=== PATIENT | male | born 1965 | race African-American/Black ===

== ENCOUNTER 2018-02-05 01:35 | Inpatient (IN) ==
[2018-02-05] MEDS ORDERED: Acetaminophen 325 MG Tablet PO PRN (04:09)
[2018-02-05 06:41] LABS: Potassium 3.6 meq/L (3.5-5.1)
[2018-02-05 06:44] LABS: Calcium 8.2 mg/dL (8.5-10.1); Carbon Dioxide 27.9 meq/L (21.0-32.0)
[2018-02-05 06:47] LABS: Baso % (Auto) 0.6 % (0.0-2.0); Eos # (Auto) 0.4 th/mm3 (0.0-0.4); Eos % (Auto) 5.7 % (0.0-4.0); Hematocrit 35.2 % (39.0-51.0); Hemoglobin 11.8 gm/dL (13.0-17.0); Lymph # (Auto) 1.8 th/mm3 (1.0-4.8); Mean Corpuscular HGB Conc 33.5 % (32.0-36.0); Mean Corpuscular Hemoglobin 26.6 pg (27.0-34.0); Mean Corpuscular Volume 79.3 fL (80.0-100.0); Mean Platelet Volume 8.6 fL (7.0-11.0); Mono # (Auto) 0.5 th/mm3 (0.0-0.9); Mono % (Auto) 8.2 % (0.0-8.0); Neut # (Auto) 3.8 th/mm3 (1.8-7.7); Neut % (Auto) 58.5 % (16.0-70.0); Platelet Count 323 th/mm3 (150-450); Red Blood Count 4.44 mil/mm3 (4.50-5.90); Red Cell Distribution Width 15.6 % (11.6-17.2); White Blood Count 6.5 th/mm3 (4.0-11.0)
[2018-02-05] MEDS ORDERED: Dextrose 50% in Water 50 ML Vial IV.PUSH PRN (08:17)
--- NOTE | 2018-02-05 08:50 | P.CONNEU ---
History of Present Illness Service: Neurology Primary Care Provider: UNKNOWN Chief Complaint: Stroke History of Present Illness: 52-year-old male transferred from outside hospital for further stroke care due to lack of neurology service at outside hospital. Patient states he was playing pool. Did not feel well went home. [place] left side getting weak went to sleep that it would resolve. It did not went to his nearest hospital for further care. No medical records available from the outside hospital or this hospital no imaging results. He states his symptoms began 8 PM yesterday. Denies any previous history of stroke or TIA. Does not take any blood thinners no antiplatelet agents. Does have a history of diabetes for which she is on insulin. Denies any clotting disorder A. fib or lupus. Denies any family history of stroke Review of Systems All other systems reviewed negative except as stated in HPI PMFSH - Tobacco History Second Hand Smoke Exposure: (HELADIO) Smoking Status: Unknown if ever smoked - Alcohol History How Often Do You Have a Drink Containing Alcohol: Unable to Obtain - Substance Use History Substance History: Unable to Obtain Medications and Allergies Active Medications: Active Medications Acetaminophen (Tylenol) 650 mg PO Q4H PRN PRN Reason: Temp > 100.4 Dextrose (D50w Vial) 50 ml IV.PUSH UNSCH PRN PRN Reason: PER HYPOGLYCEMIA PROTOCOL Glucagon (Glucagon Inj) 1 mg OTHER PRN PRN PRN Reason: for Hypoglycemia Protocol Insulin Aspart (Novolog Insulin Correctional Sugar Inj) 0 unit SQ ACHS JN; Protocol Lorazepam (Ativan Inj) 1 mg IV.PUSH ONCE ONE Stop: 02/05/18 08:14 Ondansetron HCl (Zofran Inj) 4 mg IV.PUSH Q6H PRN PRN Reason: NAUSEA OR VOMITING Sodium Chloride (Ns Flush) 2 ml IV.FLUSH BID JN Allergies Allergy/AdvReac Type Severity Reaction Status Date / Time No Known Allergies Allergy Uncoded 07/04/11 12:04 Exam Vital signs: Vital Signs 02/05/18 05:00 02/05/18 08:00 Temperature 97.7 F 97.4 F L Pulse Rate 75 64 Respiratory Rate 20 Blood Pressure 141/79 H 145/98 H Pulse Oximetry 98 99 Intake & Output 02/04/18 02/05/18 02/05/18 18:59 06:59 18:59 Intake Total 0 / 0 Balance 0 / 0 Weight 90 kg Intake: Oral 0 / 0 Other: # Voids 1 Narrative: GENERAL: in NAD, SKIN: Warm and dry. HEAD: Atraumatic. Normocephalic. EYES: Pupils equal and round. No scleral icterus. ENT: No nasal bleeding or discharge. Mucous membranes pink and moist. NECK: Trachea midline. No JVD. CARDIOVASCULAR: Regular rate and rhythm. RESPIRATORY: No accessory muscle use. GASTROINTESTINAL: Abdomen soft, non-tender, nondistended. MUSCULOSKELETAL: Right toe amputate NEUROLOGICAL: Awake and alert. No aphasia, fluent articulate, oriented x3, follows motor request, left hemiplegia strength 0 out of 5, stocking distribution neuropathy reduced pinprick right toe amputation PSYCHIATRIC: Appropriate mood and affect; insight and judgment normal. - Constitutional no acute distress - Routine HEENT Exam Head: Present: normocephalic Results - Labs CBC & Chem 7: 02/05/18 05:57 02/05/18 05:57 Labs: Laboratory Results - last 24 hr 02/05/18 02/05/18 02/05/18 05:57 05:57 07:14 CBC w Diff Auto diff final WBC 6.5 RBC 4.44 L Hgb 11.8 L Hct 35.2 L MCV 79.3 L MCH 26.6 L MCHC 33.5 RDW 15.6 Plt Count 323 MPV 8.6 Neut % (Auto) 58.5 Lymph % (Auto) 27.0 [place] % (Auto) 8.2 H Eos % (Auto) 5.7 H Baso % (Auto) 0.6 Neut # (Auto) 3.8 Lymph # (Auto) 1.8 [place] # (Auto) 0.5 Eos # (Auto) 0.4 Baso # (Auto) 0.0 WBC Differential . Differential Comment . Sodium 137 Potassium 3.6 Chloride 99 Carbon Dioxide 27.9 Anion Gap 10 BUN 15 Creatinine 1.20 Estimated GFR 76 L POC Glucose 293 H Random Glucose 339 H Calcium 8.2 L Review/Management - Diagnosis (1) Acute ischemic stroke Code(s): I63.9 - Cerebral infarction, unspecified Status: Acute Current Visit: Yes (2) Diabetic peripheral neuropathy Code(s): E11.42 - Type 2 diabetes mellitus with diabetic polyneuropathy Status : Acute Current Visit: Yes - Review/Management Plan: Appears to have a pure motor cortical spinal tract stroke affecting the right side. Possible right subcortical Risk factors include diabetes, hypertension likely small vessel stroke. Recommendations aspirin MRI, MRA brain Carotid imaging Echo Lipid, TSH, B12, HbA1c Therapy Telemetry SCDs Consider hematological evaluation if recurrent episode despite behavioral modification and diabetic and hypertension control. Consider cardiology evaluation for ARMAAN/event monitor defer to medical Behavioral modification and risk factor reduction. Weight loss, blood pressure control, blood sugar control, lipid control. Exercise Discussed with medical Will likely require inpatient rehabilitation closer to his home
--- NOTE | 2018-02-05 09:50 | US ---
EXAM DATE: 02/05/2018 12:00 AM EDT AGE/SEX: 52 years / Male INDICATIONS: Left sided weakness. CLINICAL DATA: This is the patient's initial encounter. Patient reports that signs and symptoms have been present for 1 day and indicates a pain score of 0/10. MEDICAL/SURGICAL HISTORY: . Left sided weakness. Diabetes. None. COMPARISON: No prior exams available for comparison. VELOCITY PARAMETERS: ICA/CCA Ratio: Right 0.8 , Left 1.7 ICA: Right 71 cm/sec, Left 116 cm/sec CCA: Right 91 cm/sec, Left 67 cm/sec ECA: Right 52 cm/sec, Left 62 cm/sec Vertebral: Right 47 cm/sec antegrade, Left 43 cm/sec antegrade FINDINGS: Right Carotid: Mild arteriosclerotic plaque is visualized.The waveforms are within normal limits. Left Carotid: Mild arteriosclerotic plaque is visualized. The waveforms are within normal limits. Other: None. CONCLUSION: Mild plaquing at both carotid bifurcations. Otherwise, unremarkable examination for patie nt's age. Specifically, no focal high-grade or hemodynamically significant stenosis. Electronically signed by: Patricio Deal MD 02/05/2018 9:49 AM EDT
[2018-02-05] MEDS: Heparin - SQ 10,000 UNITS/ML Vial SQ SCH ×2 (10:23→21:45)
[2018-02-05] MEDS: Aspirin 325 MG Tablet PO SCH (10:23)
[2018-02-05 10:28] LABS: Chol/HDL Ratio 5.46 Ratio; HDL Cholesterol 26.9 mg/dL (40.0-60.0)
--- NOTE | 2018-02-05 14:49 | MR ---
EXAM DATE: 02/05/2018 9:46 AM EDT AGE/SEX: 52 years / Male INDICATIONS: CVA. Left sided weakness for two days. CLINICAL DATA: This is the patient's initial encounter. Patient reports that signs and symptoms have been present for 2 days and indicates a pain score of 6/10. MEDICAL/SURGICAL HISTORY: Diabetes mellitus type II. . Knee sx. COMPARISON: HPO, MR HEAD W/O CONTRAST, 02/05/2018. . TECHNIQUE: 3D [id number] MRA was performed. Source images, multiplanar STS MIP, and 3D volum e MIP reconstructions were reviewed. FINDINGS: Anterior Circulation: Intracranial Carotid Arteries: Patent. SARAH: There is no evidence for aneurysm, vessel truncation or stenosis, and no evidence for vascular m alformation. MCA: There is no evidence for aneurysm, vessel truncation or stenosis, and no evidence for vascular m alformation. Posterior Circulation: Distal Vertebral Arteries: Distal Vertebral arteries are symetrical and patent. Basilar Artery: There is no evidence for aneurysm, vessel truncation or stenosis, and no evidence for vascular malformation. FIRE RANGE TECHNICIAN and Cerebellar Branches: There is no evidence for aneurysm, vessel truncation or stenosis, and no evidence for vascular malformation. CONCLUSION: 1. Unremarkable MRA examination of the [place]. Specifically, no evidence for large vessel occlusion. Electronically signed by: Jj Saravia MD 02/05/2018 2:48 PM EDT
--- NOTE | 2018-02-05 14:51 | P.HP ---
History of Present Illness Primary Care Physician: UNKNOWN Chief Complaint: Stroke History of Present Illness: 52-year-old male with known history of hypertension, hyperlipidemia, myocardial infarction, diabetes, peripheral neuropathy, chronic neck and back pain who presented to the hospital for evaluation of left-sided weakness. Patient states that his normal state of health until he was out playing pool last evening. He states that every time he went to go to the restroom and he was urinating he got lightheaded and dizzy. He subsequently went home early from the pool tournament. He called his uncle and told him that he was not feeling well, his uncle was going to come over and check on him. When his uncle got to his house he was sleeping and when he woke up at approximately 8:00 he had left- sided numbness in both upper and lower extremities. He indicated that there was some blurred vision, difficulty in speaking. The patient was taken to the ER by his uncle in approximately 30 minutes. Patient had workup done at [facility] and was found to have a negative CT scan. Apparently there was no neurologist stone driller helper per ER documentation. The patient was transferred to [facility] for continued care and management. Upon evaluating patient today he does have significant stroke symptoms with left- sided weakness, paralysis. Patient indicates that he has had a TIA in the past. - Diagnosis (1) Acute ischemic stroke Review of Systems All other systems reviewed negative except as stated in HPI Neurologic: Reports abnormal speech, Reports abnormal walking, Reports dizziness , Reports localized weakness, Reports tingling/numbness/burning sensations, Reports weakness PMFSH - Medical History Medical History: Medical History (Last Updated 02/05/18 @ 15:00 by BETSY Hernandes) Chronic back pain Coronary artery disease Diabetes mellitus Diabetic neuropathy Gastroesophageal reflux History of transient ischemic attack (TIA) Hyperlipidemia Hypertension Peripheral neuropathy - Surgical History Surgical History: Surgical History (Last Updated 02/05/18 @ 14:59 by BETSY Hernandes) History of cardiac catheterization History of left knee surgery Status post right foot surgery - Family History Family History: Family History (Last Updated 02/05/18 @ 15:00 by BETSY Hernandes) Father History of myocardial infarction - Tobacco History Second Hand Smoke Exposure: (HELADIO) Smoking Status: Unknown if ever smoked - Alcohol History How Often Do You Have a Drink Containing Alcohol: Unable to Obtain - Substance Use History Substance History: Unable to Obtain Medications and Allergies Active Medications: Active Medications Acetaminophen (Tylenol) 650 mg PO Q4H PRN PRN Reason: Temp > 100.4 Aspirin (Aspirin) 325 mg PO DAILY [facility] Last Admin: 02/05/18 10:23 Dose: 325 mg Dextrose (D50w Vial) 50 ml IV.PUSH UNSCH PRN PRN Reason: PER HYPOGLYCEMIA PROTOCOL Glucagon (Glucagon Inj) 1 mg OTHER PRN PRN PRN Reason: for Hypoglycemia Protocol Heparin Sodium (Porcine) (Heparin Inj) 5,000 units SQ Q12HR [facility] Last Admin: 02/05/18 10:23 Dose: 5,000 units Insulin Aspart (Novolog Insulin Correctional Sugar Inj) 0 unit SQ ACHS [facility]; Protocol Ondansetron HCl (Zofran Inj) 4 mg IV.PUSH Q6H PRN PRN Reason: NAUSEA OR VOMITING Sodium Chloride (Ns Flush) 2 ml IV.FLUSH BID [facility] Last Admin: 02/05/18 10:23 Dose: 2 ml Allergies Allergy/AdvReac Type Severity Reaction Status Date / Time No Known Allergies Allergy Uncoded 07/04/11 12:04 Home Medications Medication Instructions Recorded Confirmed Type Novolin 70/30 U-100 Insulin 40 unit SUBCUT AC BREAKFAST 02/05/18 02/05/18 History amlodipine [Norvasc] 10 mg PO DAILY 02/05/18 02/05/18 History atorvastatin [Lipitor] 20 mg PO DAILY 02/05/18 02/05/18 History cetirizine [Zyrtec] 10 mg PO DAILY 02/05/18 02/05/18 History duloxetine [Cymbalta] 60 mg PO DAILY 02/05/18 02/05/18 History gabapentin 300 mg PO BID 02/05/18 02/05/18 History insulin NPH and regular human 20 unit SUBCUT HS 02/05/18 02/05/18 History [Novolin 70/30 U-100 Insulin] oxycodone-acetaminophen [Percocet] 1 tab PO Q6H PRN 02/05/18 02/05/18 History sitagliptin [Januvia] 100 mg PO DAILY 02/05/18 02/05/18 History triamterene-hydrochlorothiazid 1 cap PO DAILY 02/05/18 02/05/18 History [Dyazide] Exam Vital signs: Vital Signs 02/05/18 05:00 02/05/18 08:00 02/05/18 12:00 Temperature 97.7 F 97.4 F L 98.2 F Pulse Rate 75 64 62 Respiratory Rate 20 18 Blood Pressure 141/79 H 145/98 H 119/76 Pulse Oximetry 98 99 95 Intake & Output 02/04/18 02/05/18 02/05/18 18:59 06:59 18:59 Intake Total 0 / 0 Balance 0 / 0 Weight 90 kg Intake: Oral 0 / 0 Other: # Voids 1 Narrative: GENERAL: Well-developed, well-nourished, in no acute distress. alert and orientated HEENT: Head is normocephalic without any lesions or masses noted. Facial features are symmetric. Eyes: Pupils equal round reactive to light. Extraocular muscles are intact. Conjunctivae were clear. Oropharyngeal: Pharynx without any erythema edema. Tongue is midline without deviation. Buccal mucosa is moist without any masses or lesions NECK: Supple without any masses. Trachea midline no deviation. No JVD, no bruits are appreciated CARDIAC: Regular rhythm, regular rate. S1/S2 are heard. No murmurs gallops or rubs. LUNGS: Clear to auscultation bilaterally. No wheeze, rhonchi or rales. No use of accessory muscles on inspiration or expiration. ABDOMEN: Soft, nontender. Nondistended. Bowel sounds heard in all 4 quadrants. No organomegaly or masses. Negative rebound, negative guarding EXTREMITIES: No edema, pulses are equal bilaterally. No cyanosis or clubbing NEUROLOGY: Mood and affect appear appropriate. Cranial nerves II through XII grossly intact. Muscle strength 0/5 in left upper and lower extremity. Deep tendon reflexes are 2+ in upper and lower extremities bilaterally. RIGHT LOWER EXTREMITIES: Patient does have rather foul smelling bandage on his right lower extremity Results - Labs CBC & Chem 7: 02/05/18 05:57 02/05/18 05:57 Labs: Laboratory Results - last 24 hr 02/05/18 02/05/18 02/05/18 05:57 05:57 07:14 CBC w Diff Auto diff final WBC 6.5 RBC 4.44 L Hgb 11.8 L Hct 35.2 L MCV 79.3 L MCH 26.6 L MCHC 33.5 RDW 15.6 Plt Count 323 MPV 8.6 Neut % (Auto) 58.5 Lymph % (Auto) 27.0 [place] % (Auto) 8.2 H Eos % (Auto) 5.7 H Baso % (Auto) 0.6 Neut # (Auto) 3.8 Lymph # (Auto) 1.8 [place] # (Auto) 0.5 Eos # (Auto) 0.4 Baso # (Auto) 0.0 WBC Differential . Differential Comment . Sodium 137 Potassium 3.6 Chloride 99 Carbon Dioxide 27.9 Anion Gap 10 BUN 15 Creatinine 1.20 Estimated GFR 76 L POC Glucose 293 H Random Glucose 339 H Calcium 8.2 L Triglycerides 135 Cholesterol 147 LDL Cholesterol, Calc 93 HDL Cholesterol 26.9 L Cholesterol/HDL Ratio 5.46 02/05/18 02/05/18 11:19 13:36 CBC w Diff WBC RBC Hgb Hct MCV MCH MCHC RDW Plt Count MPV Neut % (Auto) Lymph % (Auto) [place] % (Auto) Eos % (Auto) Baso % (Auto) Neut # (Auto) Lymph # (Auto) [place] # (Auto) Eos # (Auto) Baso # (Auto) WBC Differential Differential Comment Sodium Potassium Chloride Carbon Dioxide Anion Gap BUN Creatinine Estimated GFR POC Glucose 222 H 215 H Random Glucose Calcium Triglycerides Cholesterol LDL Cholesterol, Calc HDL Cholesterol Cholesterol/HDL Ratio - Imaging Impressions Carotid Doppler Study 02/05/18 00:00 CONCLUSION: Mild plaquing at both carotid bifurcations. Otherwise, unremarkable examination for patient's age. Specifically, no focal high-grade or hemodynamically significant stenosis. Head MRA 02/05/18 04:13 CONCLUSION: 1. Unremarkable MRA examination of the [place]. Specifically, no evidence for large vessel occlusion. Caprini VTE Risk Assessment Caprini VTE Risk Assessment: Moderate/High Risk (score >= 2) Caprini Risk Assessment Model: Point Value = 1 Point Value = 2 Point Value = 3 Point Value = 5 Age 41-60 Minor surgery BMI > 25 kg/m2 Swollen legs Varicose veins or History of unexplained or recurrent spontaneous Oral contraceptives or hormone replacement Sepsis (< 1 month) Serious lung disease, including pneumonia (< 1 month) Abnormal pulmonary function Acute myocardial infarction Congestive heart failure (< 1 month) History of inflammatory bowel disease Medical patient at bed rest Age 61-74 Arthroscopic surgery Major open surgery (> 45 min) Laparoscopic surgery (> 45 min) Malignancy Confined to bed (> 72 hours) Immobilizing plaster cast Central venous access Age >= 75 History of VTE Family history of VTE Factor V Leiden Prothrombin [id number] Lupus anticoagulant Anticardiolipin antibodies Elevated serum homocysteine Heparin-induced thrombocytopenia Other congenital or acquired thrombophilia Stroke (< 1 month) Elective arthroplasty Hip, pelvis, or leg fracture Acute spinal cord injury (< 1 month) Prophylaxis Regimen: Total Risk Factor Score Risk Level Prophylaxis Regimen 0-1 Low Early ambulation 2 Moderate Order ONE of the following: *Sequential Compression Device (SCD) *Heparin 5000 units SQ BID 3-4 Higher Order ONE of the following medications: *Heparin 5000 units SQ TID *Enoxaparin/Lovenox 40 mg SQ daily (WT < 150 kg, CrCl > 30 mL/min) *Enoxaparin/Lovenox 30 mg SQ daily (WT < 150 kg, CrCl > 10-29 mL/min) *Enoxaparin/Lovenox 30 mg SQ BID (WT < 150 kg, CrCl > 30 mL/min) AND/OR *Sequential Compression Device (SCD) 5 or more Highest Order ONE of the following medications: *Heparin 5000 units SQ TID (Preferred with Epidurals) *Enoxaparin/Lovenox 40 mg SQ daily (WT < 150 kg, CrCl > 30 mL/min) *Enoxaparin/Lovenox 30 mg SQ daily (WT < 150 kg, CrCl > 10-29 mL/min) *Enoxaparin/Lovenox 30 mg SQ BID (WT < 150 kg, CrCl > 30 mL/min) AND *Sequential Compression Device (SCD) Assessment and Plan - Assessment (1) Acute ischemic stroke Code(s): I63.9 - Cerebral infarction, unspecified Status: Acute - Plan Acute left-sided weakness, rule out CVA -CT scan of the head at [facility] did not indicate any acute abnormality -MRI of the brain did not indicate any acute infarction or hemorrhage. Does show a 2.6 x 1.5 cm left middle cranial fossa arachnoid cyst. Mild periventricular ischemic white matter demyelinization were -MRA of the brain showed unremarkable MRA -Carotid ultrasound shows mild plaquing in both carotid bifurcations, otherwise unremarkable examination -Awaiting echocardiogram, -neurology evaluated the patient and have multiple recommendations to include possible hematological evaluation if recurrent episode, possible cardiology evaluation for ARMAAN/event monitor, patient will require inpatient rehab closer to his home -Awaiting TSH, B12, folate, hemoglobin A1c Diabetes -Diabetic diet -Accu-Cheks with sliding scale insulin Hypertension, hyperlipidemia, coronary disease, history of myocardial infarction -Permissive hypertension at this time -Continue statin Diabetic foot wound, chronic -Consult wound care nurse for evaluation DVT prevention -Sequential compression devices
--- NOTE | 2018-02-05 14:54 | MR ---
EXAM DATE: 02/05/2018 9:46 AM EDT AGE/SEX: 52 years / Male INDICATIONS: CVA. Left sided weakess for two days. CLINICAL DATA: This is the patient's initial encounter. Patient reports that signs and symptoms have been present for 2 days and indicates a pain score of 3/10. MEDICAL/SURGICAL HISTORY: Diabetes mellitus type II. . Knee sx. COMPARISON: HPO, MRA HEAD W/O CONTRAST, 02/05/2018. . TECHNIQUE: Multiplanar, multisequence examination of the brain was performed without contrast. FINDINGS: Cerebrum: Mild diffuse cerebral atrophy. The ventricles are normal for degree of atrophy. CSF densi ty extra-axial lesion in the left anterior temporal lobe convexities measuring 2.6 x 1.5 cm. No evide nce of midline shift, mass lesion, hemorrhage or acute infarction. No extraaxial fluid collections a re seen. The pituitary gland and suprasellar cistern are normal in configuration. White Matter: Minimal periventricular and focal deep white matter T2 prolongation. Posterior Fossa: The cerebellum and brainstem are intact. The 4th ventricle is midline. The cerebel lopontine angle is unremarkable. The cerebellar tonsils are normal in position. Diffusion Imaging: No focal areas of restricted diffusion are seen. No evidence of acute infarction . Extracranial: The visualized portions of the orbits and paranasal sinuses are unremarkable. CONCLUSION: 1. 2.6 x 1.5 cm left middle cranial fossa arachnoid cyst. 2. Mild periventricular ischemic white matter demyelination. 3. No acute abnormality. Specifically, no evidence for acute infarction or hemorrhage. Electronically signed by: Jj Saravia MD 02/05/2018 2:53 PM EDT
[2018-02-05] MEDS: Duloxetine 60 MG DR Capsule PO SCH (16:23)
[2018-02-05] MEDS: Gabapentin 300 MG Capsule PO SCH ×2 (16:23→21:45)
[2018-02-05] MEDS: Insulin NovoLOG Aspart Correctional Sugar Inj SQ SCH ×3 (16:27→21:44)
[2018-02-05 18:15] LABS: Thyroid Stimulating Hormone 0.719 uIU/mL (0.358-3.740)
[2018-02-05 18:51] LABS: Hemoglobin A1c 12.1 % (4.3-6.0)
[2018-02-05 20:32] LABS: Folate 13.7 ng/mL (3.1-17.5)
[2018-02-06] MEDS: Duloxetine 60 MG DR Capsule PO SCH (07:59)
[2018-02-06] MEDS: Aspirin 325 MG Tablet PO SCH (07:59)
[2018-02-06] MEDS: Heparin - SQ 10,000 UNITS/ML Vial SQ SCH ×2 (07:59→22:34)
[2018-02-06] MEDS: Gabapentin 300 MG Capsule PO SCH ×2 (07:59→22:34)
[2018-02-06] MEDS: Insulin NovoLOG Aspart Correctional Sugar Inj SQ SCH ×4 (08:00→22:34)
--- NOTE | 2018-02-06 15:13 | P.PN ---
Subjective Interval history: 52-year-old male who is seen and examined today for follow-up on left-sided weakness. Patient states that he is improving. He is able to move his left upper extremity. Said he started developing some pain in his left lower extremity. Patient denies any worsening of symptoms. Blood pressure mildly elevated, patient remains afebrile. Physical Exam Vital signs: Vital Signs 02/05/18 16:00 02/05/18 20:00 02/06/18 00:00 Temperature 97.3 F L 98.7 F 97.4 F L Pulse Rate 67 80 72 Respiratory Rate 18 18 18 Blood Pressure 141/80 H 139/92 H 126/86 Pulse Oximetry 97 96 97 02/06/18 04:00 02/06/18 08:00 02/06/18 11:03 Temperature 97.4 F L 96.3 F L Pulse Rate 68 67 Respiratory Rate 18 20 20 Blood Pressure 98/60 L 138/92 H Pulse Oximetry 96 96 02/06/18 12:00 Temperature 98.2 F Pulse Rate 79 Respiratory Rate 20 Blood Pressure 163/97 H Pulse Oximetry 93 L Intake & Output 02/05/18 02/06/18 02/06/18 18:59 06:59 18:59 Intake Total 500 / 500 480 / 480 Output Total 200 / 200 600 / 600 Balance 300 / 300 -120 / -120 Weight 90 kg Intake: Oral 500 / 500 480 / 480 Output: Urine 200 / 200 600 / 600 Other: # Voids 1 Date of Last Bowel Movement 02/05/18 02/05/18 02/05/18 # Bowel Movements 1 1 Narrative: GENERAL: Well-developed, well-nourished, in no acute distress. alert and orientated HEENT: Head is normocephalic without any lesions or masses noted. Facial features are symmetric. Eyes: Extraocular muscles are intact. Conjunctivae were clear. NECK: Supple without any masses. Trachea midline no deviation. No JVD, CARDIAC: Regular rhythm, regular rate. S1/S2 are heard. No murmurs gallops or rubs. LUNGS: Clear to auscultation bilaterally. No wheeze, rhonchi or rales. No use of accessory muscles on inspiration or expiration. ABDOMEN: Soft, nontender. Nondistended. Bowel sounds heard in all 4 quadrants. No organomegaly or masses. Negative rebound, negative guarding EXTREMITIES: No edema, pulses are equal bilaterally. No cyanosis or clubbing NEUROLOGY: Mood and affect appear appropriate. Cranial nerves II through XII grossly intact. Moving all extremities, speech is clear. Neurological exam with muscle strength and varies. 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 But then at times he is a 2/5. Very difficult to see if he has any persistent neurological deficits because appears to change on a moment's basis. Results - Labs CBC & Chem 7: 02/05/18 05:57 02/05/18 05:57 Laboratory Results - last 24 hr 02/05/18 02/05/18 02/05/18 05:57 16:22 17:30 ESR 1 POC Glucose 265 H Hemoglobin A1c 12.1 H Vitamin B12 Folate TSH 02/05/18 02/05/18 02/06/18 17:30 20:28 07:27 ESR POC Glucose 200 H 207 H Hemoglobin A1c Vitamin B12 417 Folate 13.7 TSH 0.719 02/06/18 11:23 ESR POC Glucose 188 H Hemoglobin A1c Vitamin B12 Folate TSH Assessment and Plan - Assessment (1) Acute ischemic stroke Code(s): I63.9 - Cerebral infarction, unspecified Status: Acute - Plan Acute left-sided weakness, rule out CVA -CT scan [facility] the head at [facility] did not indicate any acute abnormality -MRI of the brain did not indicate any acute infarction or hemorrhage. Does show a 2.6 x 1.5 cm left middle cranial fossa arachnoid cyst. Mild periventricular ischemic white matter demyelinization were -MRA of the brain showed unremarkable MRA -Carotid ultrasound shows mild plaquing in both carotid bifurcations, otherwise unremarkable examination -Awaiting MRI of the cervical spine -Awaiting echocardiogram, -neurology evaluated the patient and have multiple recommendations to include possible hematological evaluation if recurrent episode, possible cardiology evaluation for ARMAAN/event monitor, patient will require inpatient rehab closer to his home -Additional labs to include TSH, B12, folate were unremarkable Diabetes -Diabetic diet -Accu-Cheks with sliding scale insulin -Hemoglobin A1c 12.1 Hypertension, hyperlipidemia, coronary disease, history of myocardial infarction -Start controlling blood pressure -Resume home medications -LDL 93 -Continue statin Diabetic foot wound, chronic -Awaiting wound care nurse for evaluation DVT prevention -Sequential compression devices Discharge Planning: Discharge planning 24-48 hours depending on completing workup, physical therapy recommendations, case management for discharge planning to home with home health care versus rehab
[2018-02-06] MEDS: amLODIPine 10 MG Tablet PO SCH (17:07)
--- NOTE | 2018-02-06 17:10 | MR ---
EXAM DATE: 02/06/2018 3:37 PM EDT AGE/SEX: 52 years / Male INDICATIONS: . Left sided weakness. Spinal stroke. CLINICAL DATA: This is the patient's subsequent encounter. Patient reports that signs and symptoms h ave been present for 2 days and indicates a pain score of 0/10. MEDICAL/SURGICAL HISTORY: Diabetes. . Left knee surgery. COMPARISON: No prior exams available for comparison. TECHNIQUE: Multiplanar, multisequence MRI examination of the cervical spine was performed without co ntrast. FINDINGS: This study is degraded by motion artifact greatest on the axial images. Vertebrae: Normal vertebral body height. There is discogenic edema in the endplates at the C5-6 leve l.. Alignment: Normal. Discs: There is mild desiccation. There is mild disc space narrowing and hypertrophic changes at C5-6 level. There are anterior extradural defects noted on the sagittal images 5 and C5-6 levels. Cord: Normal configuration and signal. Post Fossa: The cerebellar tonsils are normal in position. C2-C3: The thecal sac has a normal configuration. There is no evidence of disc herniation or spinal canal stenosis. The neural foramina are patent bilaterally. C3-C4: The thecal sac has a normal configuration. There is no evidence of disc herniation or spinal canal stenosis. The neural foramina are patent bilaterally C4-C5: There is a moderate-sized broad-based protrusion which meets the anterior cord with apparent mild flattening and no abnormal signal. CSF is located posterior to the cord. There is mild to modera te narrowing the neural foramina bilaterally C5-C6: There is a moderate disc bulge which meets the anterior cord with questionable mild flattenin g and no abnormal signal. The CSF space surrounding the cord is obliterated and the residual AP diame ter canal measures 7 to 8 mm. There is moderate narrowing of the neural foramina bilaterally. C6-C7: The thecal sac has a normal configuration. There is no evidence of disc herniation or spinal canal stenosis. The neural foramina are patent bilaterally. C7-T1: No epidural impressions seen. CONCLUSION: 1. Moderate size broad-based protrusion at the C4-5 level which meets the anterior cord with apparen t mild flattening in no abnormal signal. 2. Moderate disc bulge at C5-6 which meets the anterior cord with questionable mild flattening. The CSF space surrounding the cord is obliterated and the residual AP diameter canal measures 7 to 8 mm c onsistent with borderline central canal stenosis. 3. Narrowing of the neural foramina bilaterally at the C4-5 and C5-6 levels. 4. Optimal exam motion artifact. Electronically signed by: Niko Gordon MD 02/06/2018 5:08 PM EDT
--- NOTE | 2018-02-06 18:21 | ECHRPT ---
Indication: CVA / TIA CONCLUSIONS Technically difficult study. The left ventricular systolic function is normal with an estimated ejection fraction in the range of 55-60%. This study was not technically sufficient to allow for evaluation of left ventricular diastolic func tion. Trace mitral valve regurgitation. There is trace tricuspid valve regurgitation. BP: / HR: Rhythm: MEASUREMENTS (Male / Female) Normal Values Technical Quality:Technically difficult study 2D ECHO LV Diastolic Diameter PLAX 4.6 cm 4.2 - 5.9 / 3.9 - 5.3 cm LV Systolic Diameter PLAX 3.5 cm IVS Diastolic Thickness 0.9 cm 0.6 - 1.0 / 0.6 - 0.9 cm LVPW Diastolic Thickness 0.9 cm 0.6 - 1.0 / 0.6 - 0.9 cm LV Relative Wall Thickness 0.4 RV Internal Dim ED PLAX 3.6 cm LVOT Diameter 2.1 cm Aortic Root Diameter 2.6 cm LA Systolic Diameter LX 3.3 cm 3.0 - 4.0 / 2.7 - 3.8 cm M-MODE AV Cusp Separation MM 2.0 cm DOPPLER AV Peak Velocity 86.9 cm/s AV Peak Gradient 3.0 mmHg LVOT Peak Velocity 68.6 cm/s LVOT Peak Gradient 1.9 mmHg AV Area Cont Eq pk 2.7 cm Mitral E Point Velocity 66.6 cm/s Mitral A Point Velocity 52.8 cm/s Mitral E to A Ratio 1.3 LV E' Lateral Velocity 6.8 cm/s Mitral E to LV E' Lateral Ratio 9.8 LV E' Septal Velocity 5.6 cm/s Mitral E to LV E' Septal Ratio 12.0 TR Peak Velocity 189.0 cm/s TR Peak Gradient 14.3 mmHg Right Atrial Pressure 10.0 mmHg Pulmonary Artery Systolic Pressu 24.3 mmHg Right Ventricular Systolic Press 24.3 mmHg PV Peak Velocity 89.6 cm/s PV Peak Gradient 3.2 mmHg FINDINGS LEFT VENTRICLE Normal left ventricular size. Wall thickness is normal. The left ventricular systolic function is normal with an estimated ejection fraction in the range of 55-60%. No regional wall motion abnormalities are present. This study was not technically sufficient to allow for evaluation of left ventricular diastolic func tion. RIGHT VENTRICLE Normal right ventricular size and systolic function. LEFT ATRIUM The left atrial size is normal. RIGHT ATRIUM The right atrial size is normal. ATRIAL SEPTUM Normal atrial septal thickness without atrial level shunting by limited color doppler interrogation. AORTA The aortic root and proximal ascending aorta are normal in size on limited imaging. MITRAL VALVE Structurally normal mitral valve. No mitral valve stenosis. Trace mitral valve regurgitation. AORTIC VALVE Trileaflet aortic valve. No aortic valve regurgitation. No aortic valve stenosis. TRICUSPID VALVE Structurally normal tricuspid valve. There is trace tricuspid valve regurgitation. The estimated pulmonary arterial pressure is 24 mmHg. PULMONARY VALVE No pulmonary valve regurgitation or stenosis. VESSELS The inferior vena cava is normal in size. PERICARDIUM No pericardial effusion. Felipe Rico DO (Electronically Signed) Final Date:06 February 2018 18:20
--- NOTE | 2018-02-06 20:07 | P.PNWCN ---
Wound Care Nurse Consult Description: Received consult for wound management of R foot from Giovanni MEYER Communicated with: CELIA Carrero 3rd floor [facility] and Chayito DIEGO Recommendation: 1.Please consult podiatry for macerated callus and possible debridement. 2.Please order wound culture for R foot wound. 3. Apply Maxorb extra AG to wound on R lateral foot and barrel bung remover and dumper macerated callus on the plantar surface of R foot 4. Cover with ABD pad, secured with rolled gauze and elastic wrap. 5. May further secure with stockinette 6. Change every other day or PRN if saturated or dislodged or until podiatry sees. Wound/Pressure Injury - Patient Status Premedicated for Pain Prior to Dressing Change: No - Wound Right foot Wound Type: Traumatic Wound Is This a Chronic Wound: Yes Requested from Provider a Wound Care Consult: Yes (Wound care saw patient today) Length (cm): 2 (~2cm) Width (cm): 2 (~2cm) Depth (cm): 0.1 (~0.1cm ) Wound Bed Appearance: [place] Wound Bed Appearance: open wound presents with 100% pink tissue. There is a closed macerated callus that extends from the periwound of the lateral R foot to the plantar surface of the R foot. Surrounding Tissue Appearance: Weeping (macerated callus) Surrounding Tissue Temperature: Cool Drainage Description: Serosanguinous Drainage Amount: Minimal Drainage Odor: Slight Odor Dressing Status: Changed Cleansing Solution: Wound cleanser Wound Packing Type: Alginate (Maxorb extra AG) Primary Dressing: ABD pad Cover Dressing: Gauze Roll/Wrap (elastic wrap) Wound Dressing Change Date: 02/06/18 Wound Margin Description: open and jagged - Additional Information Patient seen for wound to R foot per wound management consult from Johnathon MEYER. Patient is laying in bed upon functional tester typewriters's arrival. Removed Dressing consisting of rolled gauze, elastic wrap, ABD pad and telfa to reveal open wound to R lateral foot. Periwound presents with peeling skin and macerated callus that extends from wound edge to R plantar surface of the foot. Full wound description with measurements are noted above. Wound was cleansed with normal saline and pat dry.Wound culture was obtained due presence of slight foul odor from wound noted after cleansing. Applied Maxorb extra AG to wound bed and macerated callus. Then covered wound with ABd pad, secured with rolled gauze and elastic wrap. Per patient he goes to outpatient [facility] for R foot wound. Also sees a Doctor from [facility]. Does not remember which Doctor he sees.
[2018-02-07] MEDS: Duloxetine 60 MG DR Capsule PO SCH (08:28)
[2018-02-07] MEDS: amLODIPine 10 MG Tablet PO SCH (08:29)
[2018-02-07] MEDS: Aspirin 325 MG Tablet PO SCH (08:29)
[2018-02-07] MEDS: Gabapentin 300 MG Capsule PO SCH ×2 (08:30→22:28)
[2018-02-07] MEDS: Heparin - SQ 10,000 UNITS/ML Vial SQ SCH ×2 (08:31→22:27)
[2018-02-07] MEDS: Insulin NovoLOG Aspart Correctional Sugar Inj SQ SCH ×4 (08:31→21:09)
--- NOTE | 2018-02-07 11:43 | P.PN ---
Subjective Interval history: 52-year-old male who is seen and examined today for follow-up on left-sided weakness. Patient still with left-sided weakness. Patient was asked to lift his arm, however he said he can only move his finger. When asked to move his foot patient was unable to do so. However patient has been walking with physical therapy. However yesterday he was moving his arm. Patient is very inconsistent with his neurological symptoms. Vital signs are stable. Patient remains afebrile. Physical Exam Vital signs: Vital Signs 02/06/18 12:00 02/06/18 16:00 02/06/18 20:04 Temperature 98.2 F 98.7 F Pulse Rate 79 82 72 Respiratory Rate 20 20 Blood Pressure 163/97 H 161/98 H Pulse Oximetry 93 L 97 02/06/18 22:00 02/07/18 00:00 02/07/18 04:00 Temperature 96.8 F L 97.0 F L 97 F L Pulse Rate 72 79 63 Respiratory Rate 18 20 20 Blood Pressure 124/82 101/67 119/84 Pulse Oximetry 96 96 97 02/07/18 06:16 02/07/18 08:00 Temperature 97.3 F L Pulse Rate 62 Respiratory Rate 18 20 Blood Pressure 121/79 Pulse Oximetry 96 Intake & Output 02/06/18 02/07/18 02/07/18 18:59 06:59 18:59 Intake Total 1480 / 1480 720 / 720 Output Total 700 / 700 900 / 900 Balance 780 / 780 -180 / -180 Weight 89.6 kg Intake: Oral 1480 / 1480 720 / 720 Output: Urine 700 / 700 900 / 900 Other: # Voids 9 Date of Last Bowel Movement 02/05/18 02/05/18 02/05/18 # Bowel Movements 1 Narrative: GENERAL: Well-developed, well-nourished, in no acute distress. alert and orientated HEENT: Head is normocephalic without any lesions or masses noted. Facial features are symmetric. Eyes: Extraocular muscles are intact. Conjunctivae were clear. NECK: Supple without any masses. Trachea midline no deviation. No JVD, CARDIAC: Regular rhythm, regular rate. S1/S2 are heard. No murmurs gallops or rubs. LUNGS: Clear to auscultation bilaterally. No wheeze, rhonchi or rales. No use of accessory muscles on inspiration or expiration. ABDOMEN: Soft, nontender. Nondistended. Bowel sounds heard in all 4 quadrants. No organomegaly or masses. Negative rebound, negative guarding EXTREMITIES: No edema, pulses are equal bilaterally. No cyanosis or clubbing NEUROLOGY: Mood and affect appear appropriate. Cranial nerves II through XII grossly intact. Moving all extremities, speech is clear. Neurological exam with muscle strength and varies. 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 But then at times he is a 2/5. Today patient has a 0/5 on movement of his left upper extremity as well has his left lower extremity. He is able to move his second digit of his left hand. Very difficult to see if he has any persistent neurological deficits because appears to change on a moment's basis. Results - Labs CBC & Chem 7: 02/05/18 05:57 02/05/18 05:57 Laboratory Results - last 24 hr 02/06/18 02/06/18 02/07/18 17:09 20:53 07:47 POC Glucose 293 H 280 H 251 H Microbiology 02/06/18 19:45 Wound - Foot Gram Stain - Final - Imaging Impressions Cervical Spine MRI 02/06/18 00:00 CONCLUSION: 1. Moderate size broad-based protrusion at the C4-5 level which meets the anterior cord with apparent mild flattening in no abnormal signal. 2. Moderate disc bulge at C5-6 which meets the anterior cord with questionable mild flattening. The CSF space surrounding the cord is obliterated and the residual AP diameter canal measures 7 to 8 mm consistent with borderline central canal stenosis. 3. Narrowing of the neural foramina bilaterally at the C4-5 and C5-6 levels. 4. Optimal exam motion artifact. Assessment and Plan - Assessment (1) Acute ischemic stroke Code(s): I63.9 - Cerebral infarction, unspecified Status: Acute - Plan Acute left-sided weakness, rule out CVA -CT scan of the head at [facility] did not indicate any acute abnormality -MRI of the brain did not indicate any acute infarction or hemorrhage. Does show a 2.6 x 1.5 cm left middle cranial fossa arachnoid cyst. Mild periventricular ischemic white matter demyelinization were -MRA of the brain showed unremarkable MRA -Carotid ultrasound shows mild plaquing in both carotid bifurcations, otherwise unremarkable examination -MRI of the cervical spine does show some abnormalities of moderate size right base protrusion of C4-C5 which meets the anterior cord with anterior mild flattening. There is moderate disc bulge at C5-C6 which meets the anterior cord with questionable mild flattening. The CSF surrounding the cord is obliterated and the residual AP diameter canal measures 7 8 mm consistent with borderline central canal stenosis. -Echocardiogram was unremarkable, -neurology evaluated the patient and made recommendations, I discussed with neurologist on a daily basis for continued care and management -Additional labs to include TSH, B12, folate were unremarkable -I did review the results of the MRI of the cervical spine with neurologist who recommended that neurosurgery evaluate the films for recommendations. I did contact neurosurgery Dr. Camara, who reviewed the records who recommended consulting a neurologist because there is nothing that can be done from a neurosurgical standpoint. I discussed this with the neurologist who indicated repeating the MRI of the brain to see if anything was missed. If it is negative then would recommend consulting psychiatry for his psychogenic weakness. Diabetes -Diabetic diet -Accu-Cheks with sliding scale insulin -Hemoglobin A1c 12.1 -Patient did undergo diabetic education Hypertension, hyperlipidemia, coronary disease, history of myocardial infarction -Start controlling blood pressure -Resume home medications -LDL 93 -Continue statin Diabetic foot wound, chronic -Wound care nurse evaluated the patient recommending podiatry consult -Awaiting podiatry evaluation -Continue to follow cultures DVT prevention -Sequential compression devices
--- NOTE | 2018-02-07 14:46 | MR ---
EXAM DATE: 02/07/2018 1:23 PM EDT AGE/SEX: 52 years / Male INDICATIONS: CVA. Left sided weakness. CLINICAL DATA: This is the patient's subsequent encounter. Patient reports that signs and symptoms h ave been present for 3 days and indicates a pain score of 0/10. MEDICAL/SURGICAL HISTORY: Diabetes mellitus type II. . Left knee. COMPARISON: [facility], MR HEAD W/O CONTRAST, 02/05/2018. [facility] [place]/2011. . TECHNIQUE: Multiplanar, multisequence examination of the brain was performed without contrast. FINDINGS: Cerebrum: The ventricles are normal for age. No evidence of midline shift, mass lesion, hemorrhage or acute infarction. No extraaxial fluid collections are seen. The pituitary gland and suprasellar cistern are normal in configuration. Arachnoid cyst left middle cranial fossa again seen and unchange d. White Matter: Scattered foci of bright T2 signal abnormalities are seen in the white matter. Posterior Fossa: The cerebellum is intact. Areas of high FLAIR abnormality in the brainstem. The 4th ventricle is midline. The cerebellopontine angle is unremarkable. The cerebellar tonsils are brittanie l in position. Diffusion Imaging: No focal areas of restricted diffusion are seen. No evidence of acute infarction . Extracranial: The visualized portions of the orbits and paranasal sinuses are unremarkable. CONCLUSION: 1. Chronic ischemic small vessel vasculopathy and similar changes in the brainstem. 2. Arachnoid cyst middle cranial fossa on the left is unchanged. 3. No acute infarction. Electronically signed by: Patrick Sung MD 02/07/2018 2:45 PM EDT
--- NOTE | 2018-02-07 17:12 | P.CON ---
History of Present Illness Service: Foot and ankle surgery/podiatry Consult date: 02/07/18 Reason for Consult: Right foot ulceration Primary Care Provider: UNKNOWN Chief Complaint: Stroke History of Present Illness: Podiatry consult for this 52-year-old male with known history of hypertension, hyperlipidemia, myocardial infarction, diabetes, presented to the hospital for evaluation of left-sided weakness. peripheral neuropathy, chronic neck pain and back pain patient states he also has a wound to the right foot which is treated by a wound care center. He denies any nausea vomiting fevers or chills. Reports a history of amputation in the past. Review of Systems All other systems reviewed negative except as stated in HPI Constitutional: Denies body ache(s), Denies chills, Denies fatigue, Denies fever (s), Denies night sweats Cardiovascular: Denies chest pain, Denies leg swelling, Denies rapid, pounding, or irregular heartbeat Gastrointestinal: Denies abdominal pain PMFSH - Medical History Medical History: Medical History (Last Reviewed 02/07/18 @ 17:08 by Delfina Roberts DPM) Chronic back pain Coronary artery disease Diabetes mellitus Diabetic neuropathy Gastroesophageal reflux History of transient ischemic attack (TIA) Hyperlipidemia Hypertension Peripheral neuropathy - Surgical History Surgical History: Surgical History (Last Reviewed 02/07/18 @ 17:08 by Delfina Roberts DPM) History of cardiac catheterization History of left knee surgery Status post right foot surgery - Family History Family History: Family History (Last Reviewed 02/07/18 @ 17:08 by Delfina Roberts DPM) Father History of myocardial infarction - Tobacco History Second Hand Smoke Exposure: (HELADIO) Smoking Status: Unknown if ever smoked - Alcohol History How Often Do You Have a Drink Containing Alcohol: Unable to Obtain - Substance Use History Substance History: Unable to Obtain Medications and Allergies Active Medications: Active Medications Acetaminophen (Tylenol) 650 mg PO Q4H PRN PRN Reason: Temp > 100.4 Amlodipine Besylate (Norvasc) 10 mg PO DAILY [facility] Last Admin: 02/07/18 08:29 Dose: 10 mg Aspirin (Aspirin) 325 mg PO DAILY [facility] Last Admin: 02/07/18 08:29 Dose: 325 mg Atorvastatin Calcium (Lipitor) 20 mg PO DAILY [facility] Last Admin: 02/07/18 08:29 Dose: 20 mg Dextrose (D50w Vial) 50 ml IV.PUSH UNSCH PRN PRN Reason: PER HYPOGLYCEMIA PROTOCOL Duloxetine HCl (Cymbalta) 60 mg PO DAILY [facility] Last Admin: 02/07/18 08:28 Dose: 60 mg Gabapentin (Neurontin) 300 mg PO BID [facility] Last Admin: 02/07/18 08:30 Dose: 300 mg Glucagon (Glucagon Inj) 1 mg OTHER PRN PRN PRN Reason: for Hypoglycemia Protocol Heparin Sodium (Porcine) (Heparin Inj) 5,000 units SQ Q12HR [facility] Last Admin: 02/07/18 08:31 Dose: 5,000 units Insulin Aspart (Novolog Insulin Correctional Sugar Inj) 0 unit SQ ACHS [facility]; Protocol Last Admin: 02/07/18 16:58 Dose: 7 unit Ondansetron HCl (Zofran Inj) 4 mg IV.PUSH Q6H PRN PRN Reason: NAUSEA OR VOMITING Sodium Chloride (Ns Flush) 2 ml IV.FLUSH BID [facility] Last Admin: 02/07/18 08:34 Dose: 2 ml Triamterene/HCTZ (Dyazide 37.5/25 Mg) 1 cap PO DAILY [facility] Last Admin: 02/07/18 08:30 Dose: 1 cap Allergies Allergy/AdvReac Type Severity Reaction Status Date / Time No Known Allergies Allergy Uncoded 07/04/11 12:04 Home Medications Medication Instructions Recorded Confirmed Type Novolin 70/30 U-100 Insulin 40 unit SUBCUT AC BREAKFAST 02/05/18 02/05/18 History amlodipine [Norvasc] 10 mg PO DAILY 02/05/18 02/05/18 History atorvastatin [Lipitor] 20 mg PO DAILY 02/05/18 02/05/18 History cetirizine [Zyrtec] 10 mg PO DAILY 02/05/18 02/05/18 History duloxetine [Cymbalta] 60 mg PO DAILY 02/05/18 02/05/18 History gabapentin 300 mg PO BID 02/05/18 02/05/18 History insulin NPH and regular human 20 unit SUBCUT HS 02/05/18 02/05/18 History [Novolin 70/30 U-100 Insulin] oxycodone-acetaminophen [Percocet] 1 tab PO Q6H PRN 02/05/18 02/05/18 History sitagliptin [Januvia] 100 mg PO DAILY 02/05/18 02/05/18 History triamterene-hydrochlorothiazid 1 cap PO DAILY 02/05/18 02/05/18 History [Dyazide] Physical Exam Vital signs: Vital Signs 02/06/18 20:04 02/06/18 22:00 02/07/18 00:00 Temperature 96.8 F L 97.0 F L Pulse Rate 72 72 79 Respiratory Rate 18 20 Blood Pressure 124/82 101/67 Pulse Oximetry 96 96 02/07/18 04:00 02/07/18 06:16 02/07/18 08:00 Temperature 97 F L 97.3 F L Pulse Rate 63 62 Respiratory Rate 20 18 20 Blood Pressure 119/84 121/79 Pulse Oximetry 97 96 02/07/18 12:00 02/07/18 16:00 Temperature 97.4 F L 97.8 F Pulse Rate 69 86 Respiratory Rate 20 20 Blood Pressure 110/76 128/85 Pulse Oximetry 96 93 L Intake & Output 02/06/18 02/07/18 02/07/18 18:59 06:59 18:59 Intake Total 1480 / 1480 720 / 720 Output Total 700 / 700 900 / 900 Balance 780 / 780 -180 / -180 Weight 89.6 kg Intake: Oral 1480 / 1480 720 / 720 Output: Urine 700 / 700 900 / 900 Other: # Voids 9 Date of Last Bowel Movement 02/05/18 02/05/18 02/05/18 # Bowel Movements 1 Narrative: GENERAL: This is a well-nourished, well-developed patient, in no apparent distress. SKIN: Right plantar lateral foot ulceration as well as dorsal lateral foot ulceration HEAD: Atraumatic. EYES: Pupils equal round and reactive. ENT: Airway patent. NECK: Trachea midline. RESPIRATORY: Nonlabored breathing. MUSCULOSKELETAL:. Negative Homans sign bilaterally. NEUROLOGICAL: Awake and alert. Normal speech. Lower extremity physical exam: Vascular: Dorsalis pedis diminished, posterior tibial diminished. Capillary refill time within normal limits to digits x5 to digits present to bilateral foot. Edema present to right lateral foot. Neuro: Gross sensation intact to bilateral lower extremity. Pinpoint sensation decreased. No hyperalgesia noted to bilateral lower extremity Dermatology: Right foot dorsal lateral ulcerations noted with associated edema and mild erythema. Hyperkeratotic periwound areas noted to ulceration. Purulent drainage noted to dorsal and plantar ulcerations. Musculoskeletal: Tender to palpation to right lateral foot to dorsal and plantar ulcerations. Assessment and Plan - Plan 52-year-old male with right foot plantar lateral and dorsal lateral ulcerations Patient examined and evaluated with all questions answered X-ray and MRI of right foot rule out osteomyelitis, or abscess Continue daily dressings per wound care Will await x-ray and MRI to determine need for intervention Would recommend IV antibiotics for diabetic foot infection Nonweightbearing to right lower extremity, okay to heel weight-bear in surgical shoe Will obtain vascular studies, ABIs
--- NOTE | 2018-02-07 17:56 | XR ---
EXAM DATE: 02/07/2018 5:01 PM EDT AGE/SEX: 52 years / Male INDICATIONS: Right foot pain. CLINICAL DATA: This is the patient's initial encounter. Patient reports that signs and symptoms have been present for 1 day and indicates a pain score of 5/10. MEDICAL/SURGICAL HISTORY: Diabetes mellitus type II. . Right foot, toes amputation. COMPARISON: No prior exams available for comparison. FINDINGS: Previous distal transmetatarsal fifth toe amputation. There is soft tissue prominence in the region o f the amputation stump without radiopaque foreign body or subcutaneous emphysema. Osseous structures are grossly intact without definite bony erosive change. Joint spaces are maintained. CONCLUSION: 1. Status post distal transmetatarsal fifth toe amputation. 2. Soft tissue prominence in the region of the amputation stump without subcutaneous emphysema, radi opaque foreign body or erosive bony change to suggest osteomyelitis. Electronically signed by: Jj Saravia MD 02/07/2018 5:55 PM EDT
[2018-02-07] MEDS ORDERED: Vancomycin Inj 1 GM/200 ML PIGGYBACK IV.SIG ONE (17:58)
[2018-02-07] MEDS ORDERED: Vancomycin Consult Pharmacy 1 EACH OTHER SCH (18:00)
[2018-02-07] MEDS ORDERED: Piperacil/Tazo 3.375 GM Premix 50 ML IV.SIG SCH (18:00)
[2018-02-07] MEDS: Piperacil/Tazo 3.375 GM Premix 50 ML IV.SIG SCH (19:43)
[2018-02-07] MEDS ORDERED: Vancomycin Inj 1,500 MG in Sodium Chlor 0.9% Inj 500 ML IV.SIG ONE (20:00)
[2018-02-08] MEDS: Piperacil/Tazo 3.375 GM Premix 50 ML IV.SIG SCH ×4 (02:39→21:10)
--- NOTE | 2018-02-08 08:14 | ECHRPT ---
EXAM DATE: 02/08/2018 12:00 AM EDT AGE/SEX: 52 years / Male INDICATIONS: right diabetic foot infection CLINICAL DATA: This is the patient's initial encounter. Patient reports that signs and symptoms have been present for 4 - 6 days and indicates a pain score of 3/10. MEDICAL/SURGICAL HISTORY: . chronic back pain, coronary artery disease, diabetes mellitus, diab etic neuropathy, GERD, TIA, hyperlipidemia, hypertension, peripheral neuropathy None. cardiac cathet erization, left knee surgery, right foot surgery COMPARISON: No prior exams available for comparison. TECHNIQUE: Four-cuff ankle and brachial pressures were obtained. Pulse cuff waveform tracings of the ankles were recorded, and ankle-brachial indices were calculated. PRESSURES (mmHg): Brachial (arm) : RIGHT: 116, LEFT: IV SITE Ankle : RIGHT: 128, LEFT: 138 HARMEET : RIGHT: 1.10, LEFT: 1.19 FINDINGS: Pulsed-Cuff Waveform: There are good upstroke and a dicrotic downstroke of the tracings. Other: None. CONCLUSION: 1. Normal examination. HARMEET right and left extremities. Electronically signed by: Jason Herr MD 02/08/2018 8:13 AM EDT
[2018-02-08] MEDS: Insulin NovoLOG Aspart Correctional Sugar Inj SQ SCH ×4 (09:04→21:12)
[2018-02-08] MEDS: amLODIPine 10 MG Tablet PO SCH (09:05)
[2018-02-08] MEDS: Duloxetine 60 MG DR Capsule PO SCH (09:05)
[2018-02-08] MEDS: Gabapentin 300 MG Capsule PO SCH ×2 (09:05→21:12)
[2018-02-08] MEDS: Aspirin 325 MG Tablet PO SCH (09:05)
[2018-02-08] MEDS: Heparin - SQ 10,000 UNITS/ML Vial SQ SCH ×2 (09:06→21:11)
[2018-02-08] MEDS ORDERED: Gadobutrol PF 10 MMOL/10 ML Vial (for RAD) IV.SIG ONE (10:04)
--- NOTE | 2018-02-08 11:28 | MR ---
EXAM DATE: 02/08/2018 9:28 AM EDT AGE/SEX: 52 years / Male INDICATIONS: . Wound on plantar surface on distal right foot over MTPJ. Would started after 5th d igit remover 1 year ago.9 CLINICAL DATA: This is the patient's sequela encounter. Patient reports that signs and symptoms have been present for > 1 year and indicates a pain score of 2/10. MEDICAL/SURGICAL HISTORY: Diabetes mellitus type II. . Left knee surgery, right 5th digit remov ed from foot. COMPARISON: No prior exams available for comparison. TECHNIQUE: Multiplanar, multisequence MRI examination was performed without contrast and after th e intravenous administration of 9 ml Gadavist (gadobutrol) single exam dose. FINDINGS: Biplane radiographs the fifth phalanx is surgically absent with penciling of the fifth metatarsal and probable osteomyelitis involving the head of the fourth metatarsal. By MRI there is marked soft tissue swelling about the distal fifth metatarsal with marrow edema in th e distal third of the metatarsal. Similar edema is seen in the head of the fourth metatarsal extendin g L1 through the way down the shaft towards the base. On the postcontrast studies there is marked enh ancement with a small 1 similar fluid collection immediately adjacent to the fifth metatarsal consist ent with a small abscess. The induration extends into the web space between the fourth and third meta tarsals however there is no marrow edema in either be third phalanx third metatarsal suggest os myeli tis at this point. The proximal third of the fifth metatarsal has normal marrow present. The enhancem ent around the fifth metatarsal extends down to the base of the fourth and fifth metatarsals without obvious fluid collection. The hindfoot is unremarkable. CONCLUSION: 1. Findings consistent with osteomyelitis involving two thirds of the distal fifth metatarsal. The b ase is spared. 2. Osteomyelitis involving the distal third of the fourth metatarsal. 3. Intense soft tissue enhancement and in the interspace between the fourth and fifth metatarsals ex tending towards the base without marrow signal alteration or fluid collections as abscess or osteomye litis. Electronically signed by: Jason Herr MD 02/08/2018 11:27 AM EDT
--- NOTE | 2018-02-08 13:08 | P.PN ---
Subjective Interval history: 52-year-old male who is seen and examined today for follow-up on neurological complaints, diabetic foot. Patient laying in bed holding on his phone with his left hand. However physical therapy indicated earlier that he could not move his left hand. His neurological symptoms changes on a daily basis, and very inconsistent with clinical/objective findings daily. Vital signs are stable. Patient remains afebrile. Physical Exam Vital signs: Vital Signs 02/07/18 16:00 02/07/18 20:00 02/07/18 20:51 Temperature 97.8 F 98 F Pulse Rate 86 93 H 89 Respiratory Rate 20 20 Blood Pressure 128/85 142/97 H Pulse Oximetry 93 L 97 02/08/18 00:00 02/08/18 04:00 02/08/18 08:00 Temperature 97.1 F L 97.2 F L 97.7 F Pulse Rate 84 67 82 Respiratory Rate 20 20 16 Blood Pressure 114/87 104/73 131/84 Pulse Oximetry 97 96 96 02/08/18 12:00 Temperature 96.6 F L Pulse Rate 70 Respiratory Rate 16 Blood Pressure 114/75 Pulse Oximetry 98 Intake & Output 02/07/18 02/08/18 02/08/18 18:59 06:59 18:59 Intake Total 360 / 360 1095 / 1095 Output Total 400 / 400 Balance 360 / 360 695 / 695 Weight 88.9 kg Intake: IV 615 / 615 Zosyn 3.375 GM Premix 50 ML @ 100 / 100 100 mls/hr IV.SIG Q6H JN Rx#: [id number] Vancomycin Inj 1,500 MG In NS 515 / 515 Inj 500 ML @ 250 mls/hr IV.SIG ONCE ONE Rx#:[id number] Oral 360 / 360 480 / 480 Output: Urine 400 / 400 Other: # Voids 4 3 Date of Last Bowel Movement 02/05/18 02/07/18 # Bowel Movements 1 2 Narrative: GENERAL: Well-developed, well-nourished, in no acute distress. alert and orientated HEENT: Head is normocephalic without any lesions or masses noted. Facial features are symmetric. Eyes: Extraocular muscles are intact. Conjunctivae were clear. NECK: Supple without any masses. Trachea midline no deviation. No JVD, CARDIAC: Regular rhythm, regular rate. S1/S2 are heard. No murmurs gallops or rubs. LUNGS: Clear to auscultation bilaterally. No wheeze, rhonchi or rales. No use of accessory muscles on inspiration or expiration. ABDOMEN: Soft, nontender. Nondistended. Bowel sounds heard in all 4 quadrants. No organomegaly or masses. Negative rebound, negative guarding EXTREMITIES: No edema, pulses are equal bilaterally. No cyanosis or clubbing NEUROLOGY: Mood and affect appear appropriate. Cranial nerves II through XII grossly intact. Patient is using his left hand holding his cell phone today. [employer] Operator strength is 3/5 in the left upper extremity. Patient is moving his left lower extremity. Right lower extremity is still bandaged. Results - Labs CBC & Chem 7: 02/05/18 05:57 02/08/18 05:35 Laboratory Results - last 24 hr 02/07/18 02/07/18 02/08/18 16:44 21:06 05:35 Creatinine 1.20 Estimated GFR 76 L POC Glucose 301 H 303 H 02/08/18 09:03 Creatinine Estimated GFR POC Glucose 248 H Microbiology 02/06/18 19:45 Wound - Foot Gram Stain - Final 02/06/18 19:45 Wound - Foot Wound Culture - Final Staphylococcus aureus - Imaging Impressions Extremity Arterial Study 02/07/18 00:00 CONCLUSION: 1. Normal examination. HARMEET right and left extremities. Head MRI 02/07/18 11:34 CONCLUSION: 1. Chronic ischemic small vessel vasculopathy and similar changes in the brainstem. 2. Arachnoid cyst middle cranial fossa on the left is unchanged. 3. No acute infarction. Foot X-Ray 02/07/18 17:01 CONCLUSION: 1. Status post distal transmetatarsal fifth toe amputation. 2. Soft tissue prominence in the region of the amputation stump without subcutaneous emphysema, radiopaque foreign body or erosive bony change to suggest osteomyelitis. Foot MRI 02/08/18 07:03 CONCLUSION: 1. Findings consistent with osteomyelitis involving two thirds of the distal fifth metatarsal. The base is spared. 2. Osteomyelitis involving the distal third of the fourth metatarsal. 3. Intense soft tissue enhancement and in the interspace between the fourth and fifth metatarsals extending towards the base without marrow signal alteration or fluid collections as abscess or osteomyelitis. Assessment and Plan - Assessment (1) Acute ischemic stroke Code(s): I63.9 - Cerebral infarction, unspecified Status: Acute - Plan Acute left-sided weakness, rule out CVA -[facility] the [facility] did not indicate any acute abnormality -MRI of the brain did not indicate any acute infarction or hemorrhage. Does show a 2.6 x 1.5 cm left middle cranial fossa arachnoid cyst. Mild periventricular ischemic white matter demyelinization were -MRA of the brain showed unremarkable MRA -Carotid ultrasound shows mild plaquing in both carotid bifurcations, otherwise unremarkable examination -MRI of the cervical spine does show some abnormalities of moderate size right base protrusion of C4-C5 which meets the anterior cord with anterior mild flattening. There is moderate disc bulge at C5-C6 which meets the anterior cord with questionable mild flattening. The CSF surrounding the cord is obliterated and the residual AP diameter canal measures 7-8 mm consistent with borderline central canal stenosis. -Echocardiogram was unremarkable, -neurology evaluated the patient and made recommendations, I discussed with neurologist on a daily basis for continued care and management -Additional labs to include TSH, B12, folate were unremarkable -I did review the results of the MRI of the cervical spine with neurologist who recommended that neurosurgery evaluate the films for recommendations. I did contact neurosurgery Dr. Camara, who reviewed the records who recommended consulting a neurologist because there is nothing that can be done from a neurosurgical standpoint. I discussed this with the neurologist who indicated repeating the MRI of the brain to see if anything was missed. If it is negative then would recommend consulting psychiatry for his psychogenic weakness. -Discussed with neurologist who indicated patient is cleared from neurological standpoint. Patient would benefit from psychiatric consult. -Consult psychiatry for evaluation Diabetes -Diabetic diet -Accu-Cheks with sliding scale insulin -Hemoglobin A1c 12.1 -Patient did undergo diabetic education Hypertension, hyperlipidemia, coronary disease, history of myocardial infarction -Start controlling blood pressure -Resume home medications -LDL 93 -Continue statin Diabetic foot wound, chronic -Wound care nurse evaluated the patient recommending podiatry consult -Podiatry evaluated the patient and recommended x-ray, MRI, antibiotics for diabetic foot wound -MRI of the foot does show osteomyelitis involving two thirds of the distal fifth metatarsal. Extensive soft tissue enhancement in the interspace between the fourth and fifth metatarsals extending towards the base without any marrow signal alteration, fluid collection, abscess or osteomyelitis. -Continue to follow cultures -Patient was started on vancomycin and Zosyn for antibiotic coverage DVT prevention -Sequential compression devices
[2018-02-08] MEDS: Vancomycin Inj 1,250 MG in Sodium Chlor 0.9% Inj 250 ML IV.SIG SCH (21:51)
[2018-02-09] MEDS: Piperacil/Tazo 3.375 GM Premix 50 ML IV.SIG SCH ×4 (02:58→20:30)
[2018-02-09] MEDS: Insulin NovoLOG Aspart Correctional Sugar Inj SQ SCH ×4 (10:13→21:08)
[2018-02-09] MEDS: amLODIPine 10 MG Tablet PO SCH (10:14)
[2018-02-09] MEDS: Gabapentin 300 MG Capsule PO SCH ×2 (10:14→20:31)
[2018-02-09] MEDS: Aspirin 325 MG Tablet PO SCH (10:14)
[2018-02-09] MEDS: Heparin - SQ 10,000 UNITS/ML Vial SQ SCH ×2 (10:14→20:10)
[2018-02-09] MEDS: Duloxetine 60 MG DR Capsule PO SCH (10:14)
--- NOTE | 2018-02-09 12:23 | P.PN ---
Subjective Interval history: 52-year-old male who is seen and examined today for follow-up on neurological symptoms, diabetic foot. Patient laying in bed comfortable, denies any new complaints. The only thing he is requesting is if he can have a full consistency diet. Vital signs are stable. Patient remains afebrile Physical Exam Vital signs: Vital Signs 02/08/18 16:00 02/08/18 20:00 02/09/18 00:00 Temperature 97.1 F L 97.5 F L 97.1 F L Pulse Rate 79 85 68 Respiratory Rate 16 20 20 Blood Pressure 111/70 122/79 119/79 Pulse Oximetry 94 L 96 95 02/09/18 04:00 02/09/18 08:00 Temperature 96.5 F L 98.1 F Pulse Rate 60 98 H Respiratory Rate 20 18 Blood Pressure 111/73 147/104 H Pulse Oximetry 96 100 Intake & Output 02/08/18 02/09/18 02/09/18 18:59 06:59 18:59 Intake Total 1020 / 1020 602.5 / 602.5 Output Total 825 / 825 500 / 500 Balance 195 / 195 102.5 / 102.5 Weight 88.8 kg Intake: IV 100 / 100 362.5 / 362.5 Zosyn 3.375 GM Premix 50 ML @ 100 / 100 100 / 100 100 mls/hr IV.SIG Q6H JN Rx#: [id number] Vancomycin Inj 1,250 MG In NS 262.5 / 262.5 Inj 250 ML @ 250 mls/hr IV.SIG Q24H JN Rx#:[id number] Oral 920 / 920 240 / 240 Output: Urine 825 / 825 500 / 500 Other: # Voids 1 Date of Last Bowel Movement 02/08/18 02/08/18 # Bowel Movements 1 Narrative: GENERAL: Well-developed, well-nourished, in no acute distress. alert and orientated HEENT: Head is normocephalic without any lesions or masses noted. Facial features are symmetric. Eyes: Extraocular muscles are intact. Conjunctivae were clear. NECK: Supple without any masses. Trachea midline no deviation. No JVD, CARDIAC: Regular rhythm, regular rate. S1/S2 are heard. No murmurs gallops or rubs. LUNGS: Clear to auscultation bilaterally. No wheeze, rhonchi or rales. No use of accessory muscles on inspiration or expiration. ABDOMEN: Soft, nontender. Nondistended. Bowel sounds heard in all 4 quadrants. No organomegaly or masses. Negative rebound, negative guarding EXTREMITIES: No edema, pulses are equal bilaterally. No cyanosis or clubbing NEUROLOGY: Mood and affect appear appropriate. Cranial nerves II through XII grossly intact. Patient is moving his left upper extremity. Pain is still noted on the right lower extremity Results - Labs CBC & Chem 7: 02/05/18 05:57 02/08/18 05:35 Laboratory Results - last 24 hr 02/08/18 02/08/18 02/09/18 16:23 21:06 10:12 POC Glucose 289 H 234 H 333 H Microbiology 02/06/18 19:45 Wound - Foot Gram Stain - Final 02/06/18 19:45 Wound - Foot Wound Culture - Final Staphylococcus aureus Assessment and Plan - Assessment (1) Acute ischemic stroke Code(s): I63.9 - Cerebral infarction, unspecified Status: Acute - Plan Acute left-sided weakness, rule out CVA -CT scan of the head at [facility] did not indicate any acute abnormality -MRI of the brain did not indicate any acute infarction or hemorrhage. Does show a 2.6 x 1.5 cm left middle cranial fossa arachnoid cyst. Mild periventricular ischemic white matter demyelinization were -MRA of the brain showed unremarkable MRA -Carotid ultrasound shows mild plaquing in both carotid bifurcations, otherwise unremarkable examination -MRI of the cervical spine does show some abnormalities of moderate size right base protrusion of C4-C5 which meets the anterior cord with anterior mild flattening. There is moderate disc bulge at C5-C6 which meets the anterior cord with questionable mild flattening. The CSF surrounding the cord is obliterated and the residual AP diameter canal measures 7-8 mm consistent with borderline central canal stenosis. -Echocardiogram was unremarkable, -neurology evaluated the patient and made recommendations, I discussed with neurologist on a daily basis for continued care and management -Additional labs to include TSH, B12, folate were unremarkable -I did review the results of the MRI of the cervical spine with neurologist who recommended that neurosurgery evaluate the films for recommendations. I did contact neurosurgery Dr. Camara, who reviewed the records who recommended consulting a neurologist because there is nothing that can be done from a neurosurgical standpoint. I discussed this with the neurologist who indicated repeating the MRI of the brain to see if anything was missed. If it is negative then would recommend consulting psychiatry for his psychogenic weakness. -Discussed with neurologist who indicated patient is cleared from neurological standpoint. Patient would benefit from psychiatric consult. -Consulted psychiatry for evaluation of psychogenic weakness Diabetes -Diabetic diet -Accu-Cheks with sliding scale insulin -Start Levemir 5 units at bedtime -Hemoglobin A1c 12.1 -Patient did undergo diabetic education Hypertension, hyperlipidemia, coronary disease, history of myocardial infarction -Start controlling blood pressure -Resume home medications -LDL 93 -Continue statin Diabetic foot wound, chronic -Wound care nurse evaluated the patient recommending podiatry consult -Podiatry evaluated the patient and recommended x-ray, MRI, antibiotics for diabetic foot wound -MRI of the foot does show osteomyelitis involving two thirds of the distal fifth metatarsal. Extensive soft tissue enhancement in the interspace between the fourth and fifth metatarsals extending towards the base without any marrow signal alteration, fluid collection, abscess or osteomyelitis. -Cultures indicate MSSA infection -Continue vancomycin and Zosyn for antibiotic coverage -Awaiting further recommendations from podiatry, patient will likely require surgical intervention. DVT prevention -Sequential compression devices
--- NOTE | 2018-02-09 19:25 | P.CONPSY ---
Provisional Diagnosis Admission Date: February 08, 2018 11:09 History of Present Illness Service: Psychiatry Consult date: 02/09/18 Primary Care Provider: UNKNOWN Chief Complaint: Stroke History of Present Illness: This is a request for a psychiatric consult. Documentation was reviewed, case was discussed with nursing and patient was evaluated. Patient is a 52-year-old black male with no psychiatric history. Patient came in with an apparent TIA and the medical team is subsequently been finding a cause for his weakness. It appears that they have ruled out stroke. Patient denies all symptoms of depressive disorder, bipolar disorder, generalized anxiety disorder, panic disorder and no psychotic symptoms were elicited. He denies auditory or visual hallucinations. No ideas of reference. No delusions elicited. Patient denies suicidal or homicidal ideation intent or plan. Past psych: Patient denies ever seeing an outpatient psychiatrist. He denies a history of psychotropic medication. He denies inpatient admission, he denies suicidal ideation or suicide attempts. He denies a history of cutting. Denies a history of therapy. Past medical: As noted in the chart Past Famhx: Denies Past Social: Patient is on Social Security disability. He is recently engaged and has 6 kids. He denies regular use of alcohol. He tried cocaine twice with his last use being in early [facility] - Medical History Medical History: Medical History (Last Reviewed 02/09/18 @ 19:23 by Momo Mendiola DO) Chronic back pain Coronary artery disease Diabetes mellitus Diabetic neuropathy Gastroesophageal reflux History of transient ischemic attack (TIA) Hyperlipidemia Hypertension Peripheral neuropathy - Surgical History Surgical History: Surgical History (Last Reviewed 02/09/18 @ 19:23 by Momo Mendiola DO) History of cardiac catheterization History of left knee surgery Status post right foot surgery - Family History Family History: Family History (Last Reviewed 02/07/18 @ 17:08 by Delfina Roberts DPM) Father History of myocardial infarction - Tobacco History Second Hand Smoke Exposure: (HELADIO) Smoking Status: Unknown if ever smoked - Alcohol History How Often Do You Have a Drink Containing Alcohol: Unable to Obtain - Substance Use History Substance History: Unable to Obtain Medications and Allergies Active Medications: Active Medications Acetaminophen (Tylenol) 650 mg PO Q4H PRN PRN Reason: Temp > 100.4 Amlodipine Besylate (Norvasc) 10 mg PO DAILY [facility] Last Admin: 02/09/18 10:14 Dose: 10 mg Aspirin (Aspirin) 325 mg PO DAILY [facility] Last Admin: 02/09/18 10:14 Dose: 325 mg Atorvastatin Calcium (Lipitor) 20 mg PO DAILY [facility] Last Admin: 02/09/18 10:14 Dose: 20 mg Dextrose (D50w Vial) 50 ml IV.PUSH UNSCH PRN PRN Reason: PER HYPOGLYCEMIA PROTOCOL Duloxetine HCl (Cymbalta) 60 mg PO DAILY [facility] Last Admin: 02/09/18 10:14 Dose: 60 mg Gabapentin (Neurontin) 300 mg PO BID [facility] Last Admin: 02/09/18 10:14 Dose: 300 mg Glucagon (Glucagon Inj) 1 mg OTHER PRN PRN PRN Reason: for Hypoglycemia Protocol Heparin Sodium (Porcine) (Heparin Inj) 5,000 units SQ Q12HR [facility] Last Admin: 02/09/18 10:14 Dose: 5,000 units Pharmacy Profile Note (Vancomycin Consult Pharmacy) 0 mls @ 0 mls/hr OTHER UNSCH [facility] Piperacillin/Tazobactam/Dextrose (Zosyn 3.375 Gm Premix) 50 mls @ 100 mls/hr IV.SIG Q6H [facility] Last Infusion: 02/09/18 18:43 Dose: 100 mls/hr Vancomycin HCl 1,250 mg/ (Sodium Chloride) 262.5 mls @ 250 mls/hr IV.SIG Q24H [facility] Last Infusion: 02/08/18 22:58 Dose: Infused Insulin Aspart (Novolog Insulin Correctional Sugar Inj) 0 unit SQ ACHS [facility]; Protocol Last Admin: 02/09/18 17:37 Dose: 5 unit Insulin Detemir (Levemir Inj) 5 unit SQ HS [facility] Miscellaneous Information ([facility] Ordered Lab Info) 0 each OTHER ONCE ONE Stop: 02/10/18 20:46 Ondansetron HCl (Zofran Inj) 4 mg IV.PUSH Q6H PRN PRN Reason: NAUSEA OR VOMITING Sodium Chloride (Ns Flush) 2 ml IV.FLUSH BID [facility] Last Admin: 02/09/18 10:15 Dose: 2 ml Triamterene/HCTZ (Dyazide 37.5/25 Mg) 1 cap PO DAILY [facility] Last Admin: 02/09/18 10:14 Dose: 1 cap Allergies Allergy/AdvReac Type Severity Reaction Status Date / Time No Known Allergies Allergy Uncoded 07/04/11 12:04 Home Medications Medication Instructions Recorded Confirmed Type Novolin 70/30 U-100 Insulin 40 unit SUBCUT AC BREAKFAST 02/05/18 02/05/18 History amlodipine [Norvasc] 10 mg PO DAILY 02/05/18 02/05/18 History atorvastatin [Lipitor] 20 mg PO DAILY 02/05/18 02/05/18 History cetirizine [Zyrtec] 10 mg PO DAILY 02/05/18 02/05/18 History duloxetine [Cymbalta] 60 mg PO DAILY 02/05/18 02/05/18 History gabapentin 300 mg PO BID 02/05/18 02/05/18 History insulin NPH and regular human 20 unit SUBCUT HS 02/05/18 02/05/18 History [Novolin 70/30 U-100 Insulin] oxycodone-acetaminophen [Percocet] 1 tab PO Q6H PRN 02/05/18 02/05/18 History sitagliptin [Januvia] 100 mg PO DAILY 02/05/18 02/05/18 History triamterene-hydrochlorothiazid 1 cap PO DAILY 02/05/18 02/05/18 History [Dyazide] Exam Vital signs: Vital Signs 02/08/18 20:00 02/09/18 00:00 02/09/18 04:00 Temperature 97.5 F L 97.1 F L 96.5 F L Pulse Rate 85 68 60 Respiratory Rate 20 20 20 Blood Pressure 122/79 119/79 111/73 Pulse Oximetry 96 95 96 02/09/18 08:00 02/09/18 12:00 02/09/18 16:00 Temperature 98.1 F 98.4 F 98.3 F Pulse Rate 98 H 83 90 Respiratory Rate 18 15 16 Blood Pressure 147/104 H 122/82 152/104 H Pulse Oximetry 100 100 98 Intake & Output 02/09/18 02/09/18 02/10/18 06:59 18:59 06:59 Intake Total 602.5 / 602.5 50 / 50 Output Total 500 / 500 Balance 102.5 / 102.5 50 / 50 Weight 88.8 kg Intake: IV 362.5 / 362.5 50 / 50 Zosyn 3.375 GM Premix 50 ML @ 100 / 100 50 / 50 100 mls/hr IV.SIG Q6H [facility] Rx#: [id number] Vancomycin Inj 1,250 MG In NS 262.5 / 262.5 Inj 250 ML @ 250 mls/hr IV.SIG Q24H [facility] Rx#:[id number] Oral 240 / 240 Output: Urine 500 / 500 Other: Date of Last Bowel Movement 02/08/18 Mental Status Examination Appearance: Appropriate Consciousness: Alert Orientation: x4 Motor Activity: Normal gait Speech: Unremarkable Language: Adequate Fund of Knowledge: Adequate Attention and Concentration: Adequate Memory: Unremarkable Mood: Appropriate Affect: Appropriate Thought Process & Associations: Intact Thought Content: Appropriate Hallucination Type: None Delusion Type: None Suicidal Ideation: No Suicidal Plan: No Suicidal Intention: No Homicidal Ideation: No Homicidal Plan: No Homicidal Intention: No Insight: Adequate Judgment: Adequate Assessment and Plan - Assessment (1) Adjustment disorder Code(s): F43.20 - Adjustment disorder, unspecified Status: Acute - Plan Plan: Estimated LOS: [] days At this time patient does not qualify for mood, anxiety, or psychotic disorder. There does not appear to be any secondary gain for feigning weakness. No further recommendations at this time Justification for Continued Inpatient Stay: N/A
[2018-02-09] MEDS ORDERED: Insulin Detemir Inj 1,000 UNIT/10 ML Vial SQ SCH (21:00)
[2018-02-09] MEDS: Vancomycin Inj 1,250 MG in Sodium Chlor 0.9% Inj 250 ML IV.SIG SCH (21:06)
--- NOTE | 2018-02-09 23:53 | P.PNPOD ---
Subjective Interval history: Patient seen bedside resting comfortably. Reports pain to right foot. Denies any N,V,F,Ch. Physical Exam Vital signs: Vital Signs 02/09/18 00:00 02/09/18 04:00 02/09/18 08:00 Temperature 97.1 F L 96.5 F L 98.1 F Pulse Rate 68 60 98 H Respiratory Rate 20 20 18 Blood Pressure 119/79 111/73 147/104 H Pulse Oximetry 95 96 100 02/09/18 12:00 02/09/18 16:00 02/09/18 20:00 Temperature 98.4 F 98.3 F 97.3 F L Pulse Rate 83 90 96 H Respiratory Rate 15 16 20 Blood Pressure 122/82 152/104 H 136/87 Pulse Oximetry 100 98 95 Intake & Output 02/09/18 02/09/18 02/10/18 06:59 18:59 06:59 Intake Total 602.5 / 602.5 50 / 50 362.5 / 362.5 Output Total 500 / 500 Balance 102.5 / 102.5 50 / 50 362.5 / 362.5 Weight 88.8 kg Intake: IV 362.5 / 362.5 50 / 50 362.5 / 362.5 Zosyn 3.375 GM Premix 50 ML @ 100 / 100 50 / 50 100 / 100 100 mls/hr IV.SIG Q6H [facility] Rx#: [id number] Vancomycin Inj 1,250 MG In NS 262.5 / 262.5 262.5 / 262.5 Inj 250 ML @ 250 mls/hr IV.SIG Q24H [facility] Rx#:[id number] Oral 240 / 240 Output: Urine 500 / 500 Other: Date of Last Bowel Movement 02/08/18 02/09/18 Narrative: No change to physical exam. Continued drainage from submet 4 ulceration. Continued edema to right foot. Medications and Allergies Active Medications: Active Medications Acetaminophen (Tylenol) 650 mg PO Q4H PRN PRN Reason: Temp > 100.4 Amlodipine Besylate (Norvasc) 10 mg PO DAILY [facility] Last Admin: 02/09/18 10:14 Dose: 10 mg Aspirin (Aspirin) 325 mg PO DAILY [facility] Last Admin: 02/09/18 10:14 Dose: 325 mg Atorvastatin Calcium (Lipitor) 20 mg PO DAILY [facility] Last Admin: 02/09/18 10:14 Dose: 20 mg Dextrose (D50w Vial) 50 ml IV.PUSH UNSCH PRN PRN Reason: PER HYPOGLYCEMIA PROTOCOL Duloxetine HCl (Cymbalta) 60 mg PO DAILY [facility] Last Admin: 02/09/18 10:14 Dose: 60 mg Gabapentin (Neurontin) 300 mg PO BID [facility] Last Admin: 02/09/18 20:31 Dose: 300 mg Glucagon (Glucagon Inj) 1 mg OTHER PRN PRN PRN Reason: for Hypoglycemia Protocol Heparin Sodium (Porcine) (Heparin Inj) 5,000 units SQ Q12HR [facility] Last Admin: 02/09/18 20:10 Dose: Not Given Pharmacy Profile Note (Vancomycin Consult Pharmacy) 0 mls @ 0 mls/hr OTHER UNSCH [facility] Piperacillin/Tazobactam/Dextrose (Zosyn 3.375 Gm Premix) 50 mls @ 100 mls/hr IV.SIG Q6H [facility] Last Infusion: 02/09/18 21:05 Dose: Infused Vancomycin HCl 1,250 mg/ (Sodium Chloride) 262.5 mls @ 250 mls/hr IV.SIG Q24H [facility] Last Infusion: 02/09/18 22:43 Dose: Infused Insulin Aspart (Novolog Insulin Correctional Sugar Inj) 0 unit SQ ACHS [facility]; Protocol Last Admin: 02/09/18 21:08 Dose: 12 unit Insulin Detemir (Levemir Inj) 5 unit SQ HS [facility] Last Admin: 02/09/18 21:07 Dose: 5 unit Miscellaneous Information ([facility] Ordered Lab Info) 0 each OTHER ONCE ONE Stop: 02/10/18 20:46 Ondansetron HCl (Zofran Inj) 4 mg IV.PUSH Q6H PRN PRN Reason: NAUSEA OR VOMITING Sodium Chloride (Ns Flush) 2 ml IV.FLUSH BID [facility] Last Admin: 02/09/18 21:12 Dose: 2 ml Triamterene/HCTZ (Dyazide 37.5/25 Mg) 1 cap PO DAILY [facility] Last Admin: 02/09/18 10:14 Dose: 1 cap Allergies Allergy/AdvReac Type Severity Reaction Status Date / Time No Known Allergies Allergy Uncoded 07/04/11 12:04 Home Medications Medication Instructions Recorded Confirmed Type Novolin 70/30 U-100 Insulin 40 unit SUBCUT AC BREAKFAST 02/05/18 02/05/18 History amlodipine [Norvasc] 10 mg PO DAILY 02/05/18 02/05/18 History atorvastatin [Lipitor] 20 mg PO DAILY 02/05/18 02/05/18 History cetirizine [Zyrtec] 10 mg PO DAILY 02/05/18 02/05/18 History duloxetine [Cymbalta] 60 mg PO DAILY 02/05/18 02/05/18 History gabapentin 300 mg PO BID 02/05/18 02/05/18 History insulin NPH and regular human 20 unit SUBCUT HS 02/05/18 02/05/18 History [Novolin 70/30 U-100 Insulin] oxycodone-acetaminophen [Percocet] 1 tab PO Q6H PRN 02/05/18 02/05/18 History sitagliptin [Januvia] 100 mg PO DAILY 02/05/18 02/05/18 History triamterene-hydrochlorothiazid 1 cap PO DAILY 02/05/18 02/05/18 History [Dyazide] Results - Labs CBC & Chem 7: 02/05/18 05:57 02/08/18 05:35 Laboratory Results - last 24 hr 02/09/18 02/09/18 02/09/18 10:12 17:37 20:29 POC Glucose 333 H 426 H 389 H Assessment and Plan - Plan 52 year old male with right foot osteomyelitis noted on MRI to fifth metatarsal , third and fourth metatarsal heads To OR tomorrow for debridement and irrigation of right foot with fifth metatarsal resection, fourth metatarsal versus fourth ray resection NPO after midnight Obtain consent Patient understands all risks, benefits and complications assocaited with procedure Patient may ultimately need a TMA will obtain OR cultures and obtain a bone biopsy to determine if there is continued osteomyelitis in foot Continue IV therapy Recommend ID consult ABIs normal
[2018-02-10] MEDS: Piperacil/Tazo 3.375 GM Premix 50 ML IV.SIG SCH ×3 (02:20→17:53)
[2018-02-10] MEDS ORDERED: fentaNYL Citrate Inj 100 MCG/2 ML Ampul ONE (06:53)
[2018-02-10] MEDS ORDERED: Lidocaine 2% Inj 50 ML Vial ONE (06:57)
--- NOTE | 2018-02-10 07:14 | P.PN ---
Subjective Interval history: 52-year-old male who is seen and examined today for follow-up on neurological complaints, diabetic foot wound. Plans for OR today for debridement possible resection. Patient denies any new complaints. He is eating well. Appears as if his diabetes is with worsening control secondary to family bringing in [place]. Vital signs are stable. Patient remains afebrile. Physical Exam Vital signs: Vital Signs 02/09/18 08:00 02/09/18 12:00 02/09/18 16:00 Temperature 98.1 F 98.4 F 98.3 F Pulse Rate 98 H 83 90 Respiratory Rate 18 15 16 Blood Pressure 147/104 H 122/82 152/104 H Pulse Oximetry 100 100 98 02/09/18 20:00 02/10/18 00:00 02/10/18 04:00 Temperature 97.3 F L 96.5 F L 96.7 F L Pulse Rate 96 H 92 H 66 Respiratory Rate 20 20 20 Blood Pressure 136/87 115/68 102/68 Pulse Oximetry 95 97 96 Intake & Output 02/09/18 02/10/18 02/10/18 18:59 06:59 18:59 Intake Total 50 / 50 412.5 / 412.5 Output Total 1350 / 1350 Balance 50 / 50 -937.5 / -937.5 Weight 88.9 kg Intake: IV 50 / 50 412.5 / 412.5 Zosyn 3.375 GM Premix 50 ML @ 50 / 50 150 / 150 100 mls/hr IV.SIG Q6H [facility] Rx#: [id number] Vancomycin Inj 1,250 MG In NS 262.5 / 262.5 Inj 250 ML @ 250 mls/hr IV.SIG Q24H [facility] Rx#:[id number] Oral 0 / 0 Output: Urine 1350 / 1350 Other: Date of Last Bowel Movement 02/09/18 Narrative: GENERAL: Well-developed, well-nourished, in no acute distress. alert and orientated HEENT: Head is normocephalic without any lesions or masses noted. Facial features are symmetric. Eyes: Extraocular muscles are intact. Conjunctivae were clear. NECK: Supple without any masses. Trachea midline no deviation. No JVD, CARDIAC: Regular rhythm, regular rate. S1/S2 are heard. No murmurs gallops or rubs. LUNGS: Clear to auscultation bilaterally. No wheeze, rhonchi or rales. No use of accessory muscles on inspiration or expiration. ABDOMEN: Soft, nontender. Nondistended. Bowel sounds heard in all 4 quadrants. No organomegaly or masses. Negative rebound, negative guarding EXTREMITIES: No edema, pulses are equal bilaterally. No cyanosis or clubbing NEUROLOGY: Mood and affect appear appropriate. Cranial nerves II through XII grossly intact. Patient appears to be using his left upper extremity better. He was using his phone with his left hand this morning. Does have good balance wheel arm burnisher strength. Results - Labs CBC & Chem 7: 02/05/18 05:57 02/08/18 05:35 Laboratory Results - last 24 hr 02/09/18 02/09/18 02/09/18 10:12 17:37 20:29 POC Glucose 333 H 426 H 389 H Assessment and Plan - Assessment (1) Acute ischemic stroke Code(s): I63.9 - Cerebral infarction, unspecified Status: Acute - Plan Acute left-sided weakness, rule out CVA -CT scan of the head at [facility] did not indicate any acute abnormality -MRI of the brain did not indicate any acute infarction or hemorrhage. Does show a 2.6 x 1.5 cm left middle cranial fossa arachnoid cyst. Mild periventricular ischemic white matter demyelinization were -MRA of the brain showed unremarkable MRA -Carotid ultrasound shows mild plaquing in both carotid bifurcations, otherwise unremarkable examination -MRI of the cervical spine does show some abnormalities of moderate size right base protrusion of C4-C5 which meets the anterior cord with anterior mild flattening. There is moderate disc bulge at C5-C6 which meets the anterior cord with questionable mild flattening. The CSF surrounding the cord is obliterated and the residual AP diameter canal measures 7-8 mm consistent with borderline central canal stenosis. -Echocardiogram was unremarkable, -neurology evaluated the patient and made recommendations, I discussed with neurologist on a daily basis for continued care and management -Additional labs to include TSH, B12, folate were unremarkable -I did review the results of the MRI of the cervical spine with neurologist who recommended that neurosurgery evaluate the films for recommendations. I did contact neurosurgery Dr. Camara, who reviewed the records who recommended consulting a neurologist because there is nothing that can be done from a neurosurgical standpoint. I discussed this with the neurologist who indicated repeating the MRI of the brain to see if anything was missed. If it is negative then would recommend consulting psychiatry for his psychogenic weakness. -Discussed with neurologist who indicated patient is cleared from neurological standpoint. Patient would benefit from psychiatric consult. -Psychiatry evaluated the patient indicates that there is no underlying psychiatric illness. States that patient has no again for feigning weakness, no further recommendations Diabetes -Patient with worsening control secondary to not following diet with outside food -Diabetic diet -Accu-Cheks with sliding scale insulin -Levemir 5 units daily -Hemoglobin A1c 12.1 -Patient did undergo diabetic education Hypertension, hyperlipidemia, coronary disease, history of myocardial infarction -Start controlling blood pressure -Resume home medications -LDL 93 -Continue statin Diabetic foot wound, chronic -Wound care nurse evaluated the patient recommending podiatry consult -Podiatry evaluated the patient and recommended x-ray, MRI, antibiotics for diabetic foot wound -MRI of the foot does show osteomyelitis involving two thirds of the distal fifth metatarsal. Extensive soft tissue enhancement in the interspace between the fourth and fifth metatarsals extending towards the base without any marrow signal alteration, fluid collection, abscess or osteomyelitis. -Cultures indicate MSSA wound infection -Continue vancomycin and Zosyn for antibiotic coverage -Podiatry to take the patient to the OR today for surgery -Consult infectious disease for antibiotic recommendations DVT prevention -Sequential compression devices
--- NOTE | 2018-02-10 08:21 | P.PNPOD ---
Subjective Interval history: Patient seen in preop with family present. Agrees with planned procedure. Denies any N,V,F,Ch. Physical Exam Vital signs: Vital Signs 02/09/18 12:00 02/09/18 16:00 02/09/18 20:00 Temperature 98.4 F 98.3 F 97.3 F L Pulse Rate 83 90 96 H Respiratory Rate 15 16 20 Blood Pressure 122/82 152/104 H 136/87 Pulse Oximetry 100 98 95 02/10/18 00:00 02/10/18 04:00 02/10/18 07:52 Temperature 96.5 F L 96.7 F L 97.7 F Pulse Rate 92 H 66 73 Respiratory Rate 20 20 16 Blood Pressure 115/68 102/68 124/84 Pulse Oximetry 97 96 97 Intake & Output 02/09/18 02/10/18 02/10/18 18:59 06:59 18:59 Intake Total 50 / 50 412.5 / 412.5 Output Total 1350 / 1350 Balance 50 / 50 -937.5 / -937.5 Weight 88.9 kg 88.451 kg Intake: IV 50 / 50 412.5 / 412.5 Zosyn 3.375 GM Premix 50 ML @ 50 / 50 150 / 150 100 mls/hr IV.SIG Q6H [facility] Rx#: [id number] Vancomycin Inj 1,250 MG In NS 262.5 / 262.5 Inj 250 ML @ 250 mls/hr IV.SIG Q24H [facility] Rx#:[id number] Oral 0 / 0 Output: Urine 1350 / 1350 Other: Date of Last Bowel Movement 02/09/18 Weight On Admission 88.451 kg Narrative: Dressing intact to right LE with [employer] to digits present. Medications and Allergies Active Medications: Active Medications Acetaminophen (Tylenol) 650 mg PO Q4H PRN PRN Reason: Temp > 100.4 Amlodipine Besylate (Norvasc) 10 mg PO DAILY [facility] Last Admin: 02/09/18 10:14 Dose: 10 mg Aspirin (Aspirin) 325 mg PO DAILY [facility] Last Admin: 02/09/18 10:14 Dose: 325 mg Atorvastatin Calcium (Lipitor) 20 mg PO DAILY [facility] Last Admin: 02/09/18 10:14 Dose: 20 mg Dextrose (D50w Vial) 50 ml IV.PUSH UNSCH PRN PRN Reason: PER HYPOGLYCEMIA PROTOCOL Duloxetine HCl (Cymbalta) 60 mg PO DAILY [facility] Last Admin: 02/09/18 10:14 Dose: 60 mg Gabapentin (Neurontin) 300 mg PO BID [facility] Last Admin: 02/09/18 20:31 Dose: 300 mg Glucagon (Glucagon Inj) 1 mg OTHER PRN PRN PRN Reason: for Hypoglycemia Protocol Heparin Sodium (Porcine) (Heparin Inj) 5,000 units SQ Q12HR [facility] Last Admin: 02/09/18 20:10 Dose: Not Given Pharmacy Profile Note (Vancomycin Consult Pharmacy) 0 mls @ 0 mls/hr OTHER UNSCH [facility] Piperacillin/Tazobactam/Dextrose (Zosyn 3.375 Gm Premix) 50 mls @ 100 mls/hr IV.SIG Q6H [facility] Last Infusion: 02/10/18 02:56 Dose: Infused Vancomycin HCl 1,250 mg/ (Sodium Chloride) 262.5 mls @ 250 mls/hr IV.SIG Q24H [facility] Last Infusion: 02/09/18 22:43 Dose: Infused Insulin Aspart (Novolog Insulin Correctional Sugar Inj) 0 unit SQ ACHS [facility]; Protocol Last Admin: 02/09/18 21:08 Dose: 12 unit Insulin Detemir (Levemir Inj) 5 unit SQ HS [facility] Last Admin: 02/09/18 21:07 Dose: 5 unit Miscellaneous Information ([facility] Ordered Lab Info) 0 each OTHER ONCE ONE Stop: 02/10/18 20:46 Ondansetron HCl (Zofran Inj) 4 mg IV.PUSH Q6H PRN PRN Reason: NAUSEA OR VOMITING Sodium Chloride (Ns Flush) 2 ml IV.FLUSH BID [facility] Last Admin: 02/09/18 21:12 Dose: 2 ml Triamterene/HCTZ (Dyazide 37.5/25 Mg) 1 cap PO DAILY [facility] Last Admin: 02/09/18 10:14 Dose: 1 cap Allergies Allergy/AdvReac Type Severity Reaction Status Date / Time morphine AdvReac Hallucinati Verified 02/10/18 07:44 ons Home Medications Medication Instructions Recorded Confirmed Type Novolin 70/30 U-100 Insulin 40 unit SUBCUT AC BREAKFAST 02/05/18 02/05/18 History amlodipine [Norvasc] 10 mg PO DAILY 02/05/18 02/05/18 History atorvastatin [Lipitor] 20 mg PO DAILY 02/05/18 02/05/18 History cetirizine [Zyrtec] 10 mg PO DAILY 02/05/18 02/05/18 History duloxetine [Cymbalta] 60 mg PO DAILY 02/05/18 02/05/18 History gabapentin 300 mg PO BID 02/05/18 02/05/18 History insulin NPH and regular human 20 unit SUBCUT HS 02/05/18 02/05/18 History [Novolin 70/30 U-100 Insulin] oxycodone-acetaminophen [Percocet] 1 tab PO Q6H PRN 02/05/18 02/05/18 History sitagliptin [Januvia] 100 mg PO DAILY 02/05/18 02/05/18 History triamterene-hydrochlorothiazid 1 cap PO DAILY 02/05/18 02/05/18 History [Dyazide] Results - Labs CBC & Chem 7: 02/05/18 05:57 02/10/18 06:13 Laboratory Results - last 24 hr 02/09/18 02/09/18 02/09/18 10:12 17:37 20:29 Creatinine Estimated GFR POC Glucose 333 H 426 H 389 H 02/10/18 02/10/18 06:13 08:00 Creatinine 1.50 H Estimated GFR 59 L POC Glucose 359 H Assessment and Plan - Plan 52 year old male with right foot osteomyelitis noted on MRI to fifth metatarsal , third and fourth metatarsal heads To OR today for debridement and irrigation of right foot with fifth metatarsal resection, fourth metatarsal versus fourth ray resection Will obtain OR cultures and pathology NPO after midnight Consent obtained and signed Patient understands all risks, benefits and complications associated with procedure Patient may ultimately need a TMA will obtain OR cultures and obtain a bone biopsy to determine if there is continued osteomyelitis in foot Continue IV therapy Recommend ID consult ABIs normal
[2018-02-10] MEDS: Bupivacaine PF 0.5% Inj 30 ML Vial ONE ×2 (08:30→08:45)
[2018-02-10] MEDS ORDERED: Lidocaine PF 1% Inj 5 ML Syringe INFILTRATN ONE (08:43)
[2018-02-10] MEDS ORDERED: Misc Info for Pharmacy OTHER STA (09:34)
--- NOTE | 2018-02-10 09:39 | P.PCN ---
Date of procedure: 02/10/18 Pre-op diagnosis: Right foot osteomyelitis Post-op diagnosis: same Procedure: Right foot fifth metatarsal resection Right foot fourth metatarsal excision Right foot submet 4 ulcer excision Right foot third metatarsal bone biopsy Anesthesia: ROMANA Surgeon: Delfina Roberts Pathology: other (1. fifth metatarsal/fourth metatarsal head for pathology 2/3. Bone biopsy third metatarsal for path and micro 4. Soft tissue right foot. 5. proximal clearing margin 5th metatarsal for path) Condition: stable Disposition: PACU
[2018-02-10] MEDS: Insulin NovoLOG Aspart Correctional Sugar Inj SQ SCH ×4 (09:54→21:23)
--- NOTE | 2018-02-10 10:18 | XR ---
EXAM DATE: 02/10/2018 12:00 AM EDT AGE/SEX: 52 years / Male INDICATIONS: Post op right foot surgery CLINICAL DATA: This is the patient's subsequent encounter. Patient reports that signs and symptoms h ave been present for 4 - 6 days and indicates a pain score of 0/10. MEDICAL/SURGICAL HISTORY: . Diabetes mellitus type II. . . Left knee surgery, right 5th digit removed from foot COMPARISON: [facility], FOOT COMPLETE RIGHT 3V, 02/07/2018. . FINDINGS: There has been interval resection of the distal half of the fifth metatarsal, distal one third of the fourth metatarsal. Focal air is identified at the postsurgical site. The remainder the osseous struc tures are intact with normal mineralization. CONCLUSION: Patient is status post resection of the distal one third of the fourth metatarsal and distal one half of the fifth metatarsal with expected postsurgical changes. Electronically signed by: Flor Pena MD 02/10/2018 10:17 AM EDT
[2018-02-10] MEDS: amLODIPine 10 MG Tablet PO SCH (11:15)
[2018-02-10] MEDS: Gabapentin 300 MG Capsule PO SCH ×2 (11:15→21:10)
[2018-02-10] MEDS: Heparin - SQ 10,000 UNITS/ML Vial SQ SCH ×2 (11:16→21:12)
[2018-02-10] MEDS: Aspirin 325 MG Tablet PO SCH (11:16)
[2018-02-10] MEDS: Duloxetine 60 MG DR Capsule PO SCH (11:16)
--- NOTE | 2018-02-10 12:45 | MR ---
cc: Delfina Roberts DPM DATE: 02/10/2018 SURGEON: Delfina Roberts DPM PETROLOGY TEACHER: None. PREOPERATIVE DIAGNOSIS: Right foot osteomyelitis. POSTOPERATIVE DIAGNOSIS: Right foot osteomyelitis. ANESTHESIA: General. HEMOSTASIS: Pneumatic ankle tourniquet set at 250 mmHg for 35 minutes. ESTIMATED BLOOD LOSS: 10 mL. MATERIALS: 2-0 Prolene. INJECTABLES: 0.5% Marcaine plain infiltrated about the right foot, 10 mL total. COMPLICATIONS: None. INDICATIONS FOR PROCEDURE: The patient is a 52-year-old male who was being treated for submet 4 ulceration. The patient was seen in the emergency department for generalized weakness. He was admitted, noted to have a diabetic foot infection. 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 MRI and x-ray were positive for osteomyelitis to fifth metatarsal as well as a third and fourth metatarsal head. There is an ulceration noted submet 4, therefore, decision was made to proceed with fifth metatarsal resection, first metatarsal head excision, and biopsy of third metatarsal. The patient would like to attempt to salvage foot, and transmetatarsal amputation was offered. However, he would like to attempt to preserve as much of the foot as possible. DESCRIPTION OF PROCEDURE: The patient was brought to the operating room, placed on the operating room table in supine position. General anesthesia was then induced. Right foot was prepped and draped in the usual sterile fashion. Right foot 0.5% Marcaine plain was infiltrated, 2 mL total. Esmarch was utilized to exsanguinate the right foot. Pneumatic ankle tourniquet was inflated. Attention was then directed to the lateral aspect where a linear incision was made down the lateral right foot. The incision was deepened through the skin and subcutaneous tissue. Care was taken to retract all vital neurovascular structures. The fifth metatarsal was identified and resected with a sagittal saw. Proximal clearing margin was also taken. Both were sent to pathology. Fourth metatarsal head was then also identified and excised utilizing sagittal saw. This was sent to pathology as well, things copiously irrigated. All necrotic nonviable tissue was debrided and removed. Normal saline 3 L was utilized to irrigate, and the plantar submetatarsal 4 ulcer was then excised in toto. Skin closure was achieved with 2-0 Prolene. Attention was then directed to the dorsal right foot where a stab incision was made over the third metatarsal head. A Jamshidi was utilized to obtain bone biopsy to fifth metatarsal head. Both were passed from the field, and one was sent for microbiology and one was sent for pathology. Site was copiously irrigated and closed with 2-0 Prolene. The right foot was then dressed with Xeroform, 4 x 4's, cast padding, ABD, and Adilson. The patient's ankle tourniquet was then deflated. Prompt hyperemic response was noted to the right foot. He tolerated the procedure and anesthesia well, was transferred from the OR to PACU with vital signs stable and neurovascular status intact. TRUPTI Nunez , 09:43 AM , 09:52 AM
--- NOTE | 2018-02-10 15:54 | ECG ---
Date Performed: 02/09/2018 Time Performed: 22:16:43 PTAGE: 52 years EKG: Sinus rhythm MINOR NONSPECIFIC T-WAVE CHANGE NO V6 RECORDING Compared to previous tracing, T-wave slightly improv ed. No V6 recording is a new finding. BORDERLINE ECG PREVIOUS TRACING : 12/12/2012 00.09 DOCTOR: Aba Moore Interpretating Date/Time 02/10/2018 15:53:39
--- NOTE | 2018-02-10 18:44 | P.CONID ---
History of Present Illness Service: Infectious Disease Consult date: 02/10/18 Requesting Physician: Patrick Castillo Reason for Consult: Rt Diabetic foot infection Primary Care Provider: UNKNOWN Chief Complaint: Stroke History of Present Illness: 52/M with longstanding diabetes, h/o CAD and past h/o TIA came to the hospital with left sided weakness and had a acute ischemic stroke. Patient had a wound on his rt foot which he says he has had for 6 months. Wound was draining and culture grew MSSA - A MRI revealed osteomyelitis of 4th and 5th metatarsals so patient has undergone surgical debridement by Podiatry. No fevers Review of Systems Constitutional: Reports fatigue, Denies body ache(s), Denies daytime sleepiness , Denies headache(s), Denies lack of energy Eyes: Reports blurry vision, Denies bulging eyes, Denies itchy eyes Ears, Nose, Mouth, and Throat: Denies abnormal hearing, Denies bleeding gums, Denies bad breath, Denies dry mouth, Denies neck lump, Denies sore throat Cardiovascular: Denies chest pain, Denies chest pain at rest, Denies chest pain with activity Respiratory: Denies change in phlegm color, Denies chest congestion, Denies cough, Denies coughing up blood Genitourinary: Denies blood in urine, Denies decreased urination, Denies difficulty urinating Musculoskeletal: Reports body aches, Denies back pain, Denies joint pain, Denies joint swelling Skin/Breast: Reports wounds Comments: On rt foot Neurologic: Reports numbness, Reports tingling/numbness/burning sensations, Denies abnormal hearing, Denies lack of coordination, Denies memory loss Psychiatric: Denies anxiety, Denies confusion, Denies hopelessness Endocrine: Denies excessive sweating Hematologic/Lymphatic: Denies easy bleeding, Denies easy bruising Allergic/Immunologic: Denies GI upset with certain foods PMFSH - Medical History Medical History: Medical History (Last Reviewed 02/09/18 @ 19:23 by Momo Mendiola DO) Chronic back pain Coronary artery disease Diabetes mellitus Diabetic neuropathy Gastroesophageal reflux History of transient ischemic attack (TIA) Hyperlipidemia Hypertension Peripheral neuropathy - Surgical History Surgical History: Surgical History (Last Reviewed 02/09/18 @ 19:23 by Momo Mendiola DO) History of cardiac catheterization History of left knee surgery Status post right foot surgery - Family History Family History: Family History (Last Reviewed 02/07/18 @ 17:08 by Delfina Roberts DPM) Father History of myocardial infarction - Tobacco History Second Hand Smoke Exposure: (HELADIO) Smoking Status: Unknown if ever smoked - Alcohol History How Often Do You Have a Drink Containing Alcohol: Unable to Obtain - Substance Use History Substance History: Unable to Obtain - Immunization History Tetanus Immunization: <5 Years Hx Influenza Vaccine This Season: Yes Medications and Allergies Active Medications: Active Medications Acetaminophen (Tylenol) 650 mg PO Q4H PRN PRN Reason: Temp > 100.4 Amlodipine Besylate (Norvasc) 10 mg PO DAILY [facility] Last Admin: 02/10/18 11:15 Dose: 10 mg Aspirin (Aspirin) 325 mg PO DAILY [facility] Last Admin: 02/10/18 11:16 Dose: 325 mg Atorvastatin Calcium (Lipitor) 20 mg PO DAILY [facility] Last Admin: 02/10/18 11:15 Dose: 20 mg Dextrose (D50w Vial) 50 ml IV.PUSH UNSCH PRN PRN Reason: PER HYPOGLYCEMIA PROTOCOL Duloxetine HCl (Cymbalta) 60 mg PO DAILY [facility] Last Admin: 02/10/18 11:16 Dose: 60 mg Gabapentin (Neurontin) 300 mg PO BID [facility] Last Admin: 02/10/18 11:15 Dose: 300 mg Glucagon (Glucagon Inj) 1 mg OTHER PRN PRN PRN Reason: for Hypoglycemia Protocol Heparin Sodium (Porcine) (Heparin Inj) 5,000 units SQ Q12HR [facility] Last Admin: 02/10/18 11:16 Dose: 5,000 units Ampicillin Sodium/Sulbactam (Sodium 3 gm/ Sodium Chloride) 100 mls @ 200 mls/ hr IV.SIG Q6H [facility] Insulin Aspart (Novolog Insulin Correctional Sugar Inj) 0 unit SQ ACHS [facility]; Protocol Last Admin: 02/10/18 17:53 Dose: 10 unit Insulin Detemir (Levemir Inj) 10 unit SQ BID JN Lactulose (Lactulose Liq) 30 ml PO DAILY PRN PRN Reason: SEVERE CONSITIPATION Miscellaneous Information ([facility] Ordered Lab Info) 0 each OTHER ONCE ONE Stop: 02/10/18 20:46 Ondansetron HCl (Zofran Inj) 4 mg IV.PUSH Q6H PRN PRN Reason: NAUSEA OR VOMITING Sodium Chloride (Ns Flush) 2 ml IV.FLUSH BID [facility] Last Admin: 10/14/18 14:45 Dose: Not Given Triamterene/HCTZ (Dyazide 37.5/25 Mg) 1 cap PO DAILY [facility] Last Admin: 02/10/18 11:15 Dose: 1 cap Allergies Allergy/AdvReac Type Severity Reaction Status Date / Time morphine AdvReac Hallucinati Verified 02/10/18 07:44 ons Home Medications Medication Instructions Recorded Confirmed Type Novolin 70/30 U-100 Insulin 40 unit SUBCUT AC BREAKFAST 02/05/18 02/05/18 History amlodipine [Norvasc] 10 mg PO DAILY 02/05/18 02/05/18 History atorvastatin [Lipitor] 20 mg PO DAILY 02/05/18 02/05/18 History cetirizine [Zyrtec] 10 mg PO DAILY 02/05/18 02/05/18 History duloxetine [Cymbalta] 60 mg PO DAILY 02/05/18 02/05/18 History gabapentin 300 mg PO BID 02/05/18 02/05/18 History insulin NPH and regular human 20 unit SUBCUT HS 02/05/18 02/05/18 History [Novolin 70/30 U-100 Insulin] oxycodone-acetaminophen [Percocet] 1 tab PO Q6H PRN 02/05/18 02/05/18 History sitagliptin [Januvia] 100 mg PO DAILY 02/05/18 02/05/18 History triamterene-hydrochlorothiazid 1 cap PO DAILY 02/05/18 02/05/18 History [Dyazide] Exam Vital signs: Vital Signs 02/09/18 20:00 02/10/18 00:00 02/10/18 04:00 Temperature 97.3 F L 96.5 F L 96.7 F L Pulse Rate 96 H 92 H 66 Respiratory Rate 20 20 20 Blood Pressure 136/87 115/68 102/68 Pulse Oximetry 95 97 96 02/10/18 07:52 02/10/18 09:40 02/10/18 09:54 Temperature 97.7 F 98.3 F Pulse Rate 73 77 79 Respiratory Rate 16 16 16 Blood Pressure 124/84 119/79 119/74 Pulse Oximetry 97 97 97 02/10/18 10:09 02/10/18 12:00 02/10/18 16:00 Temperature 97.7 F 97.0 F L 97.5 F L Pulse Rate 78 80 102 H Respiratory Rate 16 20 Blood Pressure 127/84 125/74 142/90 H Pulse Oximetry 95 96 99 Intake & Output 02/09/18 02/10/18 02/10/18 18:59 06:59 18:59 Intake Total 50 / 50 412.5 / 412.5 1030 / 1030 Output Total 1350 / 1350 600 / 600 Balance 50 / 50 -937.5 / -937.5 430 / 430 Weight 88.9 kg 88.451 kg Intake: IV 50 / 50 412.5 / 412.5 Zosyn 3.375 GM Premix 50 ML @ 50 / 50 150 / 150 100 mls/hr IV.SIG Q6H JN Rx#: [id number] Vancomycin Inj 1,250 MG In NS 262.5 / 262.5 Inj 250 ML @ 250 mls/hr IV.SIG Q24H JN Rx#:[id number] Oral 0 / 0 630 / 630 Anesthesia Amount 300 / 300 Other 100 / 100 Output: Urine 1350 / 1350 600 / 600 Other: Other Intake Source Saline Solution # Voids 1 Date of Last Bowel Movement 02/09/18 Weight On Admission 88.451 kg - Constitutional no acute distress, thin, chronically ill appearing - Routine HEENT Exam Head: Present: atraumatic. Absent: facial swelling Eye: Present: EOMI. Absent: periorbital ecchymosis, periorbital swelling ENT: Present: mucous membranes moist, oropharynx clear - Routine Neck Exam Present: supple, full ROM. Absent: tenderness - Routine Chest/Breast/Axilla Exam Chest wall: Absent: tenderness, mass - Routine Respiratory Exam Absent: accessory muscle use, rales, respiratory distress, rhonchi - Routine Cardiovascular Exam Present: RRR, S1, S2, murmur - Routine Abdominal Exam Present: soft, normoactive bowel sounds. Absent: tenderness, distended, mass - Routine Extremities Exam Comments: RT foot with surgical dressing Calf area is warm/ tender - Routine Skin Exam Present: lesions Comments: RT foot with dressing - Routine Neurological Exam Present: alert, oriented X3, moving all extremities, normal speech. Absent: tremors Results - Labs CBC & Chem 7: 02/05/18 05:57 02/10/18 06:13 Labs: Laboratory Results - last 24 hr 02/09/18 02/10/18 02/10/18 20:29 06:13 08:00 Creatinine 1.50 H Estimated GFR 59 L POC Glucose 389 H 359 H 02/10/18 02/10/18 09:41 17:48 Creatinine Estimated GFR POC Glucose 330 H 523 H* - Imaging Impressions Foot X-Ray 02/10/18 00:00 CONCLUSION: Patient is status post resection of the distal one third of the fourth metatarsal and distal one half of the fifth metatarsal with expected postsurgical changes. Assessment and Plan (1) Foot osteomyelitis, right Status: Acute Code(s): M86.9 - Osteomyelitis, unspecified (2) Diabetic peripheral neuropathy Status: Acute Code(s): E11.42 - Type 2 diabetes mellitus with diabetic polyneuropathy (3) Acute ischemic stroke Status: Acute Code(s): I63.9 - Cerebral infarction, unspecified - Plan Follow intraoperative cultures Wound cultures have grown MSSA Stop IV Vancomycin and Zosyn Start Unasyn 3 g iv q6hrs Start Cipro 500 mg po bid Podiatry is following patient
[2018-02-10] MEDS ORDERED: Pharmacy Ordered Lab Info OTHER ONE (20:45)
[2018-02-10] MEDS: Ciprofloxacin 500 MG Tablet PO SCH (21:11)
[2018-02-10] MEDS: Insulin Detemir Inj 1,000 UNIT/10 ML Vial SQ SCH (21:20)
[2018-02-10] MEDS ORDERED: oxyCODONE/Acetaminophen 10/325 Tablet PO ONE (23:23)
[2018-02-10] MEDS: Ampicillin/Sulbactam Inj 3 GM in Sodium Chloride 0.9% Inj 100 ML IV.SIG SCH (23:52)
[2018-02-11] MEDS: oxyCODONE/Acetaminophen 10/325 Tablet PO PRN ×4 (04:00→21:13)
[2018-02-11] MEDS: Ampicillin/Sulbactam Inj 3 GM in Sodium Chloride 0.9% Inj 100 ML IV.SIG SCH ×4 (05:30→23:46)
[2018-02-11] MEDS: Insulin NovoLOG Aspart Correctional Sugar Inj SQ SCH ×4 (07:51→21:12)
[2018-02-11] MEDS: Ciprofloxacin 500 MG Tablet PO SCH ×2 (08:00→21:11)
[2018-02-11] MEDS: Gabapentin 300 MG Capsule PO SCH ×2 (08:00→21:11)
[2018-02-11] MEDS: Duloxetine 60 MG DR Capsule PO SCH (08:01)
[2018-02-11] MEDS: Aspirin 325 MG Tablet PO SCH (08:01)
[2018-02-11] MEDS: amLODIPine 10 MG Tablet PO SCH (08:01)
[2018-02-11] MEDS: Insulin Detemir Inj 1,000 UNIT/10 ML Vial SQ SCH ×2 (08:02→21:12)
[2018-02-11] MEDS: Heparin - SQ 10,000 UNITS/ML Vial SQ SCH ×2 (08:02→21:11)
--- NOTE | 2018-02-11 14:07 | P.PN ---
Subjective Interval history: 52-year-old male who is seen and examined today for follow-up on neurological deficits, diabetic foot, uncontrolled diabetes. Patient still with uncontrolled diabetes secondary to family bringing him in food and not following appropriate diet. Patient did have procedure done yesterday. Infectious disease has evaluated the patient. Vital signs are stable, patient remains afebrile. Physical Exam Vital signs: Vital Signs 02/10/18 16:00 02/10/18 20:00 02/11/18 00:00 Temperature 97.5 F L 97.6 F 97.6 F Pulse Rate 102 H 101 H 98 H Respiratory Rate 20 18 18 Blood Pressure 142/90 H 135/83 125/84 Pulse Oximetry 99 95 92 L 02/11/18 08:00 02/11/18 11:36 02/11/18 12:00 Temperature 96.6 F L 97.1 F L Pulse Rate 69 67 Respiratory Rate 18 20 18 Blood Pressure 125/79 140/95 H Pulse Oximetry 96 98 Intake & Output 02/10/18 02/11/18 02/11/18 18:59 06:59 18:59 Intake Total 1080 / 1080 1560 / 1560 Output Total 600 / 600 1250 / 1250 Balance 480 / 480 310 / 310 Weight 88.451 kg 88.4 kg Intake: IV 50 / 50 200 / 200 Unasyn Inj 3 GM In NS Inj 100 200 / 200 ML @ 200 mls/hr IV.SIG Q6H JN Rx#:[id number] Zosyn 3.375 GM Premix 50 ML @ 50 / 50 100 mls/hr IV.SIG Q6H JN Rx#: [id number] Oral 630 / 630 1360 / 1360 Anesthesia Amount 300 / 300 Other 100 / 100 Output: Urine 600 / 600 1250 / 1250 Other: Other Intake Source Saline Solution # Voids 1 Date of Last Bowel Movement 02/09/18 02/09/18 Weight On Admission 88.451 kg Narrative: GENERAL: Well-developed, well-nourished, in no acute distress. alert and orientated HEENT: Head is normocephalic without any lesions or masses noted. Facial features are symmetric. Eyes: Extraocular muscles are intact. Conjunctivae were clear. NECK: Supple without any masses. Trachea midline no deviation. No JVD, CARDIAC: Regular rhythm, regular rate. S1/S2 are heard. No murmurs gallops or rubs. LUNGS: Clear to auscultation bilaterally. No wheeze, rhonchi or rales. No use of accessory muscles on inspiration or expiration. ABDOMEN: Soft, nontender. Nondistended. Bowel sounds heard in all 4 quadrants. No organomegaly or masses. Negative rebound, negative guarding EXTREMITIES: No edema, pulses are equal bilaterally. No cyanosis or clubbing NEUROLOGY: Mood and affect appear appropriate. Cranial nerves II through XII grossly intact. Patient appears to be using his left upper extremity better. He was using his phone with his left hand this morning. 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 Results - Labs CBC & Chem 7: 02/05/18 05:57 02/10/18 06:13 Laboratory Results - last 24 hr 02/10/18 02/10/18 02/11/18 17:48 21:19 00:03 POC Glucose 523 H* 413 H 312 H 02/11/18 02/11/18 07:12 11:10 POC Glucose 231 H 304 H Microbiology 02/10/18 09:27 Tissue - Foot Gram Stain - Final 02/10/18 09:27 Tissue - Foot Wound Culture - Preliminary No growth in 24 hours 02/10/18 09:25 Wound - Foot Gram Stain - Final 02/10/18 09:25 Wound - Foot Wound Culture - Preliminary No growth in 24 hours 02/10/18 09:27 Tissue - Foot Fungal Smear - Final No fungal elements seen 02/10/18 09:25 Wound - Foot Fungal Smear - Final No fungal elements seen Assessment and Plan - Assessment (1) Acute ischemic stroke Code(s): I63.9 - Cerebral infarction, unspecified Status: Acute - Plan Diabetic foot wound, chronic -Wound care nurse evaluated the patient recommending podiatry consult -Podiatry evaluated the patient and recommended x-ray, MRI, antibiotics for diabetic foot wound -MRI of the foot does show osteomyelitis involving two thirds of the distal fifth metatarsal. Extensive soft tissue enhancement in the interspace between the fourth and fifth metatarsals extending towards the base without any marrow signal alteration, fluid collection, abscess or osteomyelitis. -Cultures indicate MSSA wound infection -Podiatry did take the patient to the OR yesterday -Consulted infectious disease for antibiotic recommendations, they discontinued vancomycin and Zosyn and started Cipro, Unasyn Acute left-sided weakness, rule out CVA -CT scan of the head at [facility] did not indicate any acute abnormality -MRI of the brain did not indicate any acute infarction or hemorrhage. Does show a 2.6 x 1.5 cm left middle cranial fossa arachnoid cyst. Mild periventricular ischemic white matter demyelinization were -MRA of the brain showed unremarkable MRA -Carotid ultrasound shows mild plaquing in both carotid bifurcations, otherwise unremarkable examination -MRI of the cervical spine does show some abnormalities of moderate size right base protrusion of C4-C5 which meets the anterior cord with anterior mild flattening. There is moderate disc bulge at C5-C6 which meets the anterior cord with questionable mild flattening. The CSF surrounding the cord is obliterated and the residual AP diameter canal measures 7-8 mm consistent with borderline central canal stenosis. -Echocardiogram was unremarkable, -neurology evaluated the patient and made recommendations, I discussed with neurologist on a daily basis for continued care and management -Additional labs to include TSH, B12, folate were unremarkable -I did review the results of the MRI of the cervical spine with neurologist who recommended that neurosurgery evaluate the films for recommendations. I did contact neurosurgery Dr. Camara, who reviewed the records who recommended consulting a neurologist because there is nothing that can be done from a neurosurgical standpoint. I discussed this with the neurologist who indicated repeating the MRI of the brain to see if anything was missed. If it is negative then would recommend consulting psychiatry for his psychogenic weakness. -Discussed with neurologist who indicated patient is cleared from neurological standpoint. Patient would benefit from psychiatric consult. Nothing more from neurological standpoint -Psychiatry evaluated the patient indicates that there is no underlying psychiatric illness. States that patient has no again for feigning weakness, no further recommendations Diabetes -Patient with worsening control secondary to not following diet with outside food -Diabetic diet -Accu-Cheks with sliding scale insulin, increase to high dose sliding scale insulin -Levemir 10 units twice daily -Hemoglobin A1c 12.1 -Patient did undergo diabetic education Hypertension, hyperlipidemia, coronary disease, history of myocardial infarction -Resume home medications -LDL 93 -Continue statin DVT prevention -Sequential compression devices
--- NOTE | 2018-02-11 14:33 | P.PNID ---
Subjective Remarks: C/o pain in foot Says he would rather have foot cut off Allergies/Adverse Reactions: Allergies morphine Adverse Reaction (Verified 02/10/18 07:44) Hallucinations Objective Vital Signs 02/10/18 16:00 02/10/18 20:00 02/11/18 00:00 Temperature 97.5 F L 97.6 F 97.6 F Pulse Rate 102 H 101 H 98 H Respiratory Rate 20 18 18 Blood Pressure 142/90 H 135/83 125/84 Pulse Oximetry 99 95 92 L 02/11/18 08:00 02/11/18 11:36 02/11/18 12:00 Temperature 96.6 F L 97.1 F L Pulse Rate 69 67 Respiratory Rate 18 20 18 Blood Pressure 125/79 140/95 H Pulse Oximetry 96 98 02/11/18 14:08 Temperature Pulse Rate Respiratory Rate 20 Blood Pressure Pulse Oximetry Intake & Output 02/10/18 02/11/18 02/11/18 18:59 06:59 18:59 Intake Total 1080 / 1080 1560 / 1560 100 / 100 Output Total 600 / 600 1250 / 1250 Balance 480 / 480 310 / 310 100 / 100 Weight 88.451 kg 88.4 kg Intake: IV 50 / 50 200 / 200 100 / 100 Unasyn Inj 3 GM In NS Inj 100 200 / 200 100 / 100 ML @ 200 mls/hr IV.SIG Q6H [facility] Rx#:[id number] Zosyn 3.375 GM Premix 50 ML @ 50 / 50 100 mls/hr IV.SIG Q6H [facility] Rx#: [id number] Oral 630 / 630 1360 / 1360 Anesthesia Amount 300 / 300 Other 100 / 100 Output: Urine 600 / 600 1250 / 1250 Other: Other Intake Source Saline Solution # Voids 1 Date of Last Bowel Movement 02/09/18 02/09/18 Weight On Admission 88.451 kg 02/10/18 09:27 Tissue - Foot Gram Stain - Final 02/10/18 09:27 Tissue - Foot Wound Culture - Preliminary No growth in 24 hours 02/10/18 09:25 Wound - Foot Gram Stain - Final 02/10/18 09:25 Wound - Foot Wound Culture - Preliminary No growth in 24 hours 02/10/18 09:27 Tissue - Foot Fungal Smear - Final No fungal elements seen 02/10/18 09:27 Tissue - Foot Fungal Culture - Pending 02/10/18 09:25 Wound - Foot Fungal Smear - Final No fungal elements seen 02/10/18 09:25 Wound - Foot Fungal Culture - Pending 02/10/18 09:27 Tissue - Foot Acid Fast Bacilli Smear - Pending 02/10/18 09:27 Tissue - Foot Mycobacterial Culture - Pending 02/10/18 09:25 Wound - Foot Acid Fast Bacilli Smear - Pending 02/10/18 09:25 Wound - Foot Mycobacterial Culture - Pending 02/06/18 19:45 Wound - Foot Gram Stain - Final 02/06/18 19:45 Wound - Foot Wound Culture - Final Staphylococcus aureus Lab - Chemistry Results 02/09/18 02/09/18 02/10/18 17:37 20:29 06:13 Creatinine 1.50 H Estimated GFR 59 L POC Glucose 426 H 389 H 02/10/18 02/10/18 02/10/18 08:00 09:41 17:48 Creatinine Estimated GFR POC Glucose 359 H 330 H 523 H* 02/10/18 02/11/18 02/11/18 21:19 00:03 07:12 Creatinine Estimated GFR POC Glucose 413 H 312 H 231 H 02/11/18 11:10 Creatinine Estimated GFR POC Glucose 304 H Imaging: ITS Impressions Carotid Doppler Study 02/05/18 00:00 CONCLUSION: Mild plaquing at both carotid bifurcations. Otherwise, unremarkable examination for patient's age. Specifically, no focal high-grade or hemodynamically significant stenosis. Head MRA 02/05/18 04:13 CONCLUSION: 1. Unremarkable MRA examination of the [place] of [place]. Specifically, no evidence for large vessel occlusion. Cervical Spine MRI 02/06/18 00:00 CONCLUSION: 1. Moderate size broad-based protrusion at the C4-5 level which meets the anterior cord with apparent mild flattening in no abnormal signal. 2. Moderate disc bulge at C5-6 which meets the anterior cord with questionable mild flattening. The CSF space surrounding the cord is obliterated and the residual AP diameter canal measures 7 to 8 mm consistent with borderline central canal stenosis. 3. Narrowing of the neural foramina bilaterally at the C4-5 and C5-6 levels. 4. Optimal exam motion artifact. Extremity Arterial Study 02/07/18 00:00 CONCLUSION: 1. Normal examination. HARMEET right and left extremities. Head MRI 02/07/18 11:34 CONCLUSION: 1. Chronic ischemic small vessel vasculopathy and similar changes in the brainstem. 2. Arachnoid cyst middle cranial fossa on the left is unchanged. 3. No acute infarction. Foot MRI 02/08/18 07:03 CONCLUSION: 1. Findings consistent with osteomyelitis involving two thirds of the distal fifth metatarsal. The base is spared. 2. Osteomyelitis involving the distal third of the fourth metatarsal. 3. Intense soft tissue enhancement and in the interspace between the fourth and fifth metatarsals extending towards the base without marrow signal alteration or fluid collections as abscess or osteomyelitis. Foot X-Ray 02/10/18 00:00 CONCLUSION: Patient is status post resection of the distal one third of the fourth metatarsal and distal one half of the fifth metatarsal with expected postsurgical changes. Assessment and Plan (1) Foot osteomyelitis, right Status: Acute Code(s): M86.9 - Osteomyelitis, unspecified (2) Diabetic peripheral neuropathy Status: Acute Code(s): E11.42 - Type 2 diabetes mellitus with diabetic polyneuropathy (3) Acute ischemic stroke Status: Acute Code(s): I63.9 - Cerebral infarction, unspecified
--- NOTE | 2018-02-11 17:27 | P.PNPOD ---
Subjective Interval history: Mild pain, seen standing on foot while I was entering the room. Physical Exam Vital signs: Vital Signs 02/10/18 20:00 02/11/18 00:00 02/11/18 08:00 Temperature 97.6 F 97.6 F 96.6 F L Pulse Rate 101 H 98 H 69 Respiratory Rate 18 18 18 Blood Pressure 135/83 125/84 125/79 Pulse Oximetry 95 92 L 96 02/11/18 11:36 02/11/18 12:00 02/11/18 14:08 Temperature 97.1 F L Pulse Rate 67 Respiratory Rate 20 18 20 Blood Pressure 140/95 H Pulse Oximetry 98 02/11/18 16:00 Temperature 96.3 F L Pulse Rate 67 Respiratory Rate 18 Blood Pressure 129/85 Pulse Oximetry 98 Intake & Output 02/10/18 02/11/18 02/11/18 18:59 06:59 18:59 Intake Total 1080 / 1080 1560 / 1560 100 / 100 Output Total 600 / 600 1250 / 1250 Balance 480 / 480 310 / 310 100 / 100 Weight 88.451 kg 88.4 kg Intake: IV 50 / 50 200 / 200 100 / 100 Unasyn Inj 3 GM In NS Inj 100 200 / 200 100 / 100 ML @ 200 mls/hr IV.SIG Q6H [facility] Rx#:[id number] Zosyn 3.375 GM Premix 50 ML @ 50 / 50 100 mls/hr IV.SIG Q6H [facility] Rx#: [id number] Oral 630 / 630 1360 / 1360 Anesthesia Amount 300 / 300 Other 100 / 100 Output: Urine 600 / 600 1250 / 1250 Other: Other Intake Source Saline Solution # Voids 1 Date of Last Bowel Movement 02/09/18 02/09/18 Weight On Admission 88.451 kg - Constitutional no acute distress - Neurological Alert and oriented x3 - Routine Extremities Exam Comments: Right foot absent 5th digit, plantar incision, long V type incision with wound edges loosely coapted with sutures intact, mild blood drainage, no pus or ischemic changes. Foot is warm, sensation decreased to light touch and deep pressure. Medications and Allergies Active Medications: Active Medications Acetaminophen (Tylenol) 650 mg PO Q4H PRN PRN Reason: Temp > 100.4 Amlodipine Besylate (Norvasc) 10 mg PO DAILY [facility] Last Admin: 02/11/18 08:01 Dose: 10 mg Aspirin (Aspirin) 325 mg PO DAILY [facility] Last Admin: 02/11/18 08:01 Dose: 325 mg Atorvastatin Calcium (Lipitor) 20 mg PO DAILY [facility] Last Admin: 02/11/18 08:00 Dose: 20 mg Ciprofloxacin HCl (Cipro) 500 mg PO Q12HR [facility] Last Admin: 02/11/18 08:00 Dose: 500 mg Dextrose (D50w Vial) 50 ml IV.PUSH UNSCH PRN PRN Reason: PER HYPOGLYCEMIA PROTOCOL Duloxetine HCl (Cymbalta) 60 mg PO DAILY [facility] Last Admin: 02/11/18 08:01 Dose: 60 mg Gabapentin (Neurontin) 300 mg PO BID [facility] Last Admin: 02/11/18 08:00 Dose: 300 mg Glucagon (Glucagon Inj) 1 mg OTHER PRN PRN PRN Reason: for Hypoglycemia Protocol Heparin Sodium (Porcine) (Heparin Inj) 5,000 units SQ Q12HR [facility] Last Admin: 02/11/18 08:02 Dose: Not Given Ampicillin Sodium/Sulbactam (Sodium 3 gm/ Sodium Chloride) 100 mls @ 200 mls/ hr IV.SIG Q6H [facility] Last Infusion: 02/11/18 14:08 Dose: Infused Insulin Aspart (Novolog Insulin Correctional Sugar Inj) 0 unit SQ ACHS [facility]; Protocol Last Admin: 02/11/18 16:54 Dose: Not Given Insulin Detemir (Levemir Inj) 10 unit SQ BID [facility] Last Admin: 02/11/18 08:02 Dose: 10 unit Lactulose (Lactulose Liq) 30 ml PO DAILY PRN PRN Reason: SEVERE CONSITIPATION Ondansetron HCl (Zofran Inj) 4 mg IV.PUSH Q6H PRN PRN Reason: NAUSEA OR VOMITING Oxycodone/Acetaminophen (Percocet 10/325 Mg) 1 tab PO Q4H PRN PRN Reason: PAIN SCALE 1 TO 10 Last Admin: 02/11/18 12:56 Dose: 1 tab Sodium Chloride (Ns Flush) 2 ml IV.FLUSH BID [facility] Last Admin: 02/11/18 08:02 Dose: 2 ml Triamterene/HCTZ (Dyazide 37.5/25 Mg) 1 cap PO DAILY [facility] Last Admin: 02/11/18 08:01 Dose: 1 cap Allergies Allergy/AdvReac Type Severity Reaction Status Date / Time morphine AdvReac Hallucinati Verified 02/10/18 07:44 ons Home Medications Medication Instructions Recorded Confirmed Type Novolin 70/30 U-100 Insulin 40 unit SUBCUT AC BREAKFAST 02/05/18 02/05/18 History amlodipine [Norvasc] 10 mg PO DAILY 02/05/18 02/05/18 History atorvastatin [Lipitor] 20 mg PO DAILY 02/05/18 02/05/18 History cetirizine [Zyrtec] 10 mg PO DAILY 02/05/18 02/05/18 History duloxetine [Cymbalta] 60 mg PO DAILY 02/05/18 02/05/18 History gabapentin 300 mg PO BID 02/05/18 02/05/18 History insulin NPH and regular human 20 unit SUBCUT HS 02/05/18 02/05/18 History [Novolin 70/30 U-100 Insulin] oxycodone-acetaminophen [Percocet] 1 tab PO Q6H PRN 02/05/18 02/05/18 History sitagliptin [Januvia] 100 mg PO DAILY 02/05/18 02/05/18 History triamterene-hydrochlorothiazid 1 cap PO DAILY 02/05/18 02/05/18 History [Dyazide] Results - Labs CBC & Chem 7: 02/05/18 05:57 02/10/18 06:13 Laboratory Results - last 24 hr 02/10/18 02/10/18 02/11/18 17:48 21:19 00:03 POC Glucose 523 H* 413 H 312 H 02/11/18 02/11/18 02/11/18 07:12 11:10 16:48 POC Glucose 231 H 304 H 119 H Microbiology 02/10/18 09:27 Tissue - Foot Acid Fast Bacilli Smear - Final No acid fast bacilli seen 02/10/18 09:25 Wound - Foot Acid Fast Bacilli Smear - Final No acid fast bacilli seen 02/10/18 09:27 Tissue - Foot Gram Stain - Final 02/10/18 09:27 Tissue - Foot Wound Culture - Preliminary No growth in 24 hours 02/10/18 09:25 Wound - Foot Gram Stain - Final 02/10/18 09:25 Wound - Foot Wound Culture - Preliminary No growth in 24 hours 02/10/18 09:27 Tissue - Foot Fungal Smear - Final No fungal elements seen 02/10/18 09:25 Wound - Foot Fungal Smear - Final No fungal elements seen Assessment and Plan - Assessment (1) Foot osteomyelitis, right Code(s): M86.9 - Osteomyelitis, unspecified Status: Acute - Plan Continue IV ABX for now, awaiting margin Bx from surgery- May need buttermaker helper IV ABX? Wound care per nursing- order in. PT order in transfer WB only right foot with CAM boot on. Will FU weds for wound check. Procedures: Date of procedure: 02/10/18 Pre-op diagnosis: Right foot osteomyelitis Post-op diagnosis: same Procedure: Right foot fifth metatarsal resection Right foot fourth metatarsal excision Right foot submet 4 ulcer excision Right foot third metatarsal bone biopsy Anesthesia: ROMANA Surgeon: Delfina Roberts Pathology: other (1. fifth metatarsal/fourth metatarsal head for pathology 2/3. Bone biopsy third metatarsal for path and micro 4. Soft tissue right foot. 5. proximal clearing margin 5th metatarsal for path)
[2018-02-12] MEDS: oxyCODONE/Acetaminophen 10/325 Tablet PO PRN ×3 (02:16→20:15)
[2018-02-12] MEDS: Ampicillin/Sulbactam Inj 3 GM in Sodium Chloride 0.9% Inj 100 ML IV.SIG SCH ×3 (06:07→17:36)
[2018-02-12] MEDS: Insulin NovoLOG Aspart Correctional Sugar Inj SQ SCH ×4 (07:42→20:42)
--- NOTE | 2018-02-12 09:18 | P.PNIM ---
Subjective Interval history: 52-year-old male who is seen and examined today for follow-up on neurological deficits, diabetic foot, uncontrolled diabetes. Patient seen and examined, lying in bed sleeping, awakens to voice. Patient complaint of uncontrolled pain in his foot. He is eating well without any nausea or vomiting. Denies any chest pain. Right foot assessed, dressing dry and intact. Physical Exam Vital signs: Vital Signs 02/11/18 11:36 02/11/18 12:00 02/11/18 14:08 Temperature 97.1 F L Pulse Rate 67 Respiratory Rate 20 18 20 Blood Pressure 140/95 H Pulse Oximetry 98 02/11/18 16:00 02/11/18 20:00 02/11/18 22:39 Temperature 96.3 F L 96.6 F L Pulse Rate 67 75 Respiratory Rate 18 18 6 L Blood Pressure 129/85 161/96 H Pulse Oximetry 98 95 02/12/18 00:00 02/12/18 08:00 Temperature 96.7 F L 97.2 F L Pulse Rate 82 65 Respiratory Rate 18 20 Blood Pressure 127/81 131/83 Pulse Oximetry 94 L 95 Intake & Output 02/11/18 02/12/18 02/12/18 18:59 06:59 18:59 Intake Total 100 / 100 1160 / 1160 100 / 100 Output Total 1500 / 1500 Balance 100 / 100 -340 / -340 100 / 100 Weight 88.4 kg Intake: IV 100 / 100 200 / 200 100 / 100 Unasyn Inj 3 GM In NS Inj 100 100 / 100 200 / 200 100 / 100 ML @ 200 mls/hr IV.SIG Q6H [facility] Rx#:[id number] Oral 960 / 960 Output: Urine 1500 / 1500 Other: # Voids 4 Date of Last Bowel Movement 02/09/18 # Bowel Movements 1 Narrative: GENERAL: Well-developed, well-nourished, in no acute distress. alert and orientated HEENT: Head is normocephalic without any lesions or masses noted. Facial features are symmetric. Eyes: Extraocular muscles are intact. Conjunctivae were clear. NECK: Supple without any masses. Trachea midline no deviation. No JVD, CARDIAC: Regular rhythm, regular rate. S1/S2 are heard. No murmurs gallops or rubs. LUNGS: Clear to auscultation bilaterally. No wheeze, rhonchi or rales. No use of accessory muscles on inspiration or expiration. ABDOMEN: Soft, nontender. Nondistended. Bowel sounds heard in all 4 quadrants. No organomegaly or masses. Negative rebound, negative guarding EXTREMITIES: No edema, pulses are equal bilaterally. No cyanosis or clubbing NEUROLOGY: Mood and affect appear appropriate. Cranial nerves II through XII grossly intact. Left upper extremity 4/5 muscle strength. Results - Labs CBC & Chem 7: 02/05/18 05:57 02/12/18 04:55 Laboratory Results - last 24 hr 02/11/18 02/11/18 02/11/18 11:10 16:48 20:22 Creatinine Estimated GFR POC Glucose 304 H 119 H 243 H 02/12/18 02/12/18 04:55 07:36 Creatinine 1.20 Estimated GFR 76 L POC Glucose 265 H Microbiology 02/10/18 09:27 Tissue - Foot Acid Fast Bacilli Smear - Final No acid fast bacilli seen 02/10/18 09:25 Wound - Foot Acid Fast Bacilli Smear - Final No acid fast bacilli seen 02/10/18 09:27 Tissue - Foot Gram Stain - Final 02/10/18 09:27 Tissue - Foot Wound Culture - Preliminary No growth in 24 hours 02/10/18 09:25 Wound - Foot Gram Stain - Final 02/10/18 09:25 Wound - Foot Wound Culture - Preliminary No growth in 24 hours 02/10/18 09:27 Tissue - Foot Fungal Smear - Final No fungal elements seen 02/10/18 09:25 Wound - Foot Fungal Smear - Final No fungal elements seen Assessment and Plan - Assessment (1) Acute ischemic stroke Code(s): I63.9 - Cerebral infarction, unspecified Status: Acute - Plan This is a 52-year-old male patient with: Diabetic foot wound, chronic -Wound care nurse evaluated the patient recommending podiatry consult. -Podiatry evaluated the patient and recommended x-ray, MRI, antibiotics for diabetic foot wound. -MRI of the foot does show osteomyelitis involving two thirds of the distal fifth metatarsal. Extensive soft tissue enhancement in the interspace between the fourth and fifth metatarsals extending towards the base without any marrow signal alteration, fluid collection, abscess or osteomyelitis. -Cultures indicate MSSA wound infection. -Podiatry did take the patient to the OR on 02/11/18. Will plan for wound check tomorrow 02/13/18. -Consulted infectious disease for antibiotic recommendations, they discontinued vancomycin and Zosyn and started Cipro, Unasyn. Await final recs and wound cultures. Acute left-sided weakness, rule out CVA -CT scan of the head at [facility] did not indicate any acute abnormality. -MRI of the brain did not indicate any acute infarction or hemorrhage. Does show a 2.6 x 1.5 cm left middle cranial fossa arachnoid cyst. Mild periventricular ischemic white matter demyelinization were -MRA of the brain showed unremarkable MRA. -Carotid ultrasound shows mild plaquing in both carotid bifurcations, otherwise unremarkable examination. -MRI of the cervical spine does show some abnormalities of moderate size right base protrusion of C4-C5 which meets the anterior cord with anterior mild flattening. There is moderate disc bulge at C5-C6 which meets the anterior cord with questionable mild flattening. The CSF surrounding the cord is obliterated and the residual AP diameter canal measures 7-8 mm consistent with borderline central canal stenosis. -Echocardiogram was unremarkable. -Neurology evaluated the patient and made recommendations, neurologist has been updated on a daily basis for continued care and management. -Additional labs to include TSH, B12, folate were unremarkable -MRI of the cervical spine with neurologist who recommended that neurosurgery evaluate the films for recommendations. Neurosurgery Dr. Camara was consulted, who reviewed the records who recommended consulting a neurologist because there is nothing that can be done from a neurosurgical standpoint. The neurologist was updated and indicated repeating the MRI of the brain to see if anything was missed. If it is negative then would recommend consulting psychiatry for his psychogenic weakness. -Discussed with neurologist who indicated patient is cleared from neurological standpoint. Patient would benefit from psychiatric consult. Nothing more from neurological standpoint -Psychiatry evaluated the patient indicates that there is no underlying psychiatric illness. States that patient has no again for feigning weakness, no further recommendations Type 2 Diabetes, uncontrolled from home -Patient with worsening control secondary to not following diet with outside food -Diabetic diet -Accu-Cheks with sliding scale insulin, Continue on high dose sliding scale insulin -Continue Levemir 10 units twice daily -Hemoglobin A1c 12.1 -Patient did undergo diabetic education Hypertension, hyperlipidemia, coronary disease, history of myocardial infarction -Resume home medications -LDL 93 -Continue statin DVT prevention -Sequential compression devices
[2018-02-12] MEDS: Insulin Detemir Inj 1,000 UNIT/10 ML Vial SQ SCH ×2 (10:13→20:42)
[2018-02-12] MEDS: Aspirin 325 MG Tablet PO SCH (10:14)
[2018-02-12] MEDS: Heparin - SQ 10,000 UNITS/ML Vial SQ SCH ×2 (10:14→20:16)
[2018-02-12] MEDS: Ciprofloxacin 500 MG Tablet PO SCH ×2 (10:14→20:16)
[2018-02-12] MEDS: Duloxetine 60 MG DR Capsule PO SCH (10:15)
[2018-02-12] MEDS: amLODIPine 10 MG Tablet PO SCH (10:15)
[2018-02-12] MEDS: Gabapentin 300 MG Capsule PO SCH ×2 (10:15→20:17)
--- NOTE | 2018-02-12 19:33 | P.PNID ---
Subjective Remarks: ID FU DR CALI FEELING BETTER C/O SURGICAL SITE PAIN SEEN BY PODIATRY NO NEW RECOMMENDATION Allergies/Adverse Reactions: Allergies morphine Adverse Reaction (Verified 02/10/18 07:44) Hallucinations Objective Vital Signs 02/11/18 20:00 02/11/18 22:39 02/12/18 00:00 Temperature 96.6 F L 96.7 F L Pulse Rate 75 82 Respiratory Rate 18 6 L 18 Blood Pressure 161/96 H 127/81 Pulse Oximetry 95 94 L 02/12/18 08:00 02/12/18 12:00 02/12/18 16:00 Temperature 97.2 F L 97.8 F 98.7 F Pulse Rate 65 73 80 Respiratory Rate 20 21 21 Blood Pressure 131/83 144/80 H 118/77 Pulse Oximetry 95 99 99 Intake & Output 02/12/18 02/12/18 02/13/18 06:59 18:59 06:59 Intake Total 1160 / 1160 780 / 780 Output Total 1500 / 1500 1000 / 1000 Balance -340 / -340 -220 / -220 Weight 88.4 kg Intake: IV 200 / 200 300 / 300 Unasyn Inj 3 GM In NS Inj 100 200 / 200 300 / 300 ML @ 200 mls/hr IV.SIG Q6H [facility] Rx#:[id number] Oral 960 / 960 480 / 480 Output: Urine 1500 / 1500 1000 / 1000 02/10/18 09:27 Tissue - Foot Gram Stain - Final 02/10/18 09:27 Tissue - Foot Wound Culture - Preliminary No growth in 48 hours 02/10/18 09:25 Wound - Foot Gram Stain - Final 02/10/18 09:25 Wound - Foot Wound Culture - Preliminary No growth in 48 hours 02/10/18 09:27 Tissue - Foot Acid Fast Bacilli Smear - Final No acid fast bacilli seen 02/10/18 09:27 Tissue - Foot Mycobacterial Culture - Pending 02/10/18 09:25 Wound - Foot Acid Fast Bacilli Smear - Final No acid fast bacilli seen 02/10/18 09:25 Wound - Foot Mycobacterial Culture - Pending 02/10/18 09:27 Tissue - Foot Fungal Smear - Final No fungal elements seen 02/10/18 09:27 Tissue - Foot Fungal Culture - Pending 02/10/18 09:25 Wound - Foot Fungal Smear - Final No fungal elements seen 02/10/18 09:25 Wound - Foot Fungal Culture - Pending Lab - Chemistry Results 02/10/18 02/11/18 02/11/18 21:19 00:03 07:12 Creatinine Estimated GFR POC Glucose 413 H 312 H 231 H 02/11/18 02/11/18 02/11/18 11:10 16:48 20:22 Creatinine Estimated GFR POC Glucose 304 H 119 H 243 H 02/12/18 02/12/18 02/12/18 04:55 07:36 11:12 Creatinine 1.20 Estimated GFR 76 L POC Glucose 265 H 240 H 02/12/18 16:51 Creatinine Estimated GFR POC Glucose 255 H Imaging: ITS Impressions Carotid Doppler Study 02/05/18 00:00 CONCLUSION: Mild plaquing at both carotid bifurcations. Otherwise, unremarkable examination for patient's age. Specifically, no focal high-grade or hemodynamically significant stenosis. Head MRA 02/05/18 04:13 CONCLUSION: 1. Unremarkable MRA examination of the [place]. Specifically, no evidence for large vessel occlusion. Cervical Spine MRI 02/06/18 00:00 CONCLUSION: 1. Moderate size broad-based protrusion at the C4-5 level which meets the anterior cord with apparent mild flattening in no abnormal signal. 2. Moderate disc bulge at C5-6 which meets the anterior cord with questionable mild flattening. The CSF space surrounding the cord is obliterated and the residual AP diameter canal measures 7 to 8 mm consistent with borderline central canal stenosis. 3. Narrowing of the neural foramina bilaterally at the C4-5 and C5-6 levels. 4. Optimal exam motion artifact. Extremity Arterial Study 02/07/18 00:00 CONCLUSION: 1. Normal examination. HARMEET right and left extremities. Head MRI 02/07/18 11:34 CONCLUSION: 1. Chronic ischemic small vessel vasculopathy and similar changes in the brainstem. 2. Arachnoid cyst middle cranial fossa on the left is unchanged. 3. No acute infarction. Foot MRI 02/08/18 07:03 CONCLUSION: 1. Findings consistent with osteomyelitis involving two thirds of the distal fifth metatarsal. The base is spared. 2. Osteomyelitis involving the distal third of the fourth metatarsal. 3. Intense soft tissue enhancement and in the interspace between the fourth and fifth metatarsals extending towards the base without marrow signal alteration or fluid collections as abscess or osteomyelitis. Foot X-Ray 02/10/18 00:00 CONCLUSION: Patient is status post resection of the distal one third of the fourth metatarsal and distal one half of the fifth metatarsal with expected postsurgical changes. Physical Exam: AWAKE / OX3 PERRL CHEST: CARDIAC RRR LUNGS: CTA ABD: ACTIVE EXT; SURGICAL DRSG RIGHT FOOT Assessment and Plan - Plan Follow intraoperative cultures Wound cultures have grown MSSA Cont Unasyn 3 g iv q6hrs Cont Cipro 500 mg po bid Podiatry is following patient May need iv on dc will re -eval in am
[2018-02-13] MEDS: oxyCODONE/Acetaminophen 10/325 Tablet PO PRN ×3 (00:12→08:23)
[2018-02-13] MEDS: Ampicillin/Sulbactam Inj 3 GM in Sodium Chloride 0.9% Inj 100 ML IV.SIG SCH ×3 (06:11)
[2018-02-13] MEDS: amLODIPine 10 MG Tablet PO SCH (08:22)
[2018-02-13] MEDS: Duloxetine 60 MG DR Capsule PO SCH (08:22)
[2018-02-13] MEDS: Ciprofloxacin 500 MG Tablet PO SCH (08:23)
[2018-02-13] MEDS: Gabapentin 300 MG Capsule PO SCH (08:23)
[2018-02-13] MEDS: Heparin - SQ 10,000 UNITS/ML Vial SQ SCH (08:25)
[2018-02-13] MEDS: Insulin Detemir Inj 1,000 UNIT/10 ML Vial SQ SCH (08:25)
[2018-02-13] MEDS: Aspirin 325 MG Tablet PO SCH (08:25)
[2018-02-13] MEDS: Insulin NovoLOG Aspart Correctional Sugar Inj SQ SCH ×2 (08:26→11:25)
--- NOTE | 2018-02-13 08:37 | P.PNIM ---
Subjective Interval history: Follow-up blood work, CVA and diabetes. Patient seen and examined, lying in bed comfortably no apparent distress. With no reports of any acute events overnight. Eating well and drinking well. Pain well controlled. ID following case. Awaiting final recommendations ID recommendations and podiatry input. Physical Exam Vital signs: Vital Signs 02/12/18 12:00 02/12/18 16:00 02/12/18 21:00 Temperature 97.8 F 98.7 F Pulse Rate 73 80 Respiratory Rate 21 21 4 L Blood Pressure 144/80 H 118/77 Pulse Oximetry 99 99 02/13/18 00:00 Temperature 95.5 F L Pulse Rate 75 Respiratory Rate 18 Blood Pressure 120/85 Pulse Oximetry 91 L Intake & Output 02/12/18 02/13/18 02/13/18 18:59 06:59 18:59 Intake Total 780 / 780 1200 / 1200 Output Total 1000 / 1000 2500 / 2500 Balance -220 / -220 -1300 / -1300 Weight 94.4 kg Intake: IV 300 / 300 200 / 200 Unasyn Inj 3 GM In NS Inj 100 300 / 300 200 / 200 ML @ 200 mls/hr IV.SIG Q6H [facility] Rx#:[id number] Oral 480 / 480 1000 / 1000 Output: Urine 1000 / 1000 2500 / 2500 Narrative: GENERAL: Well-developed, well-nourished, in no acute distress. alert and orientated HEENT: Head is normocephalic without any lesions or masses noted. Facial features are symmetric. Eyes: Extraocular muscles are intact. Conjunctivae were clear. NECK: Supple without any masses. Trachea midline no deviation. No JVD, CARDIAC: Regular rhythm, regular rate. S1/S2 are heard. No murmurs gallops or rubs. LUNGS: Clear to auscultation bilaterally. No wheeze, rhonchi or rales. No use of accessory muscles on inspiration or expiration. ABDOMEN: Soft, nontender. Nondistended. Bowel sounds heard in all 4 quadrants. No organomegaly or masses. Negative rebound, negative guarding EXTREMITIES: No edema, pulses are equal bilaterally. No cyanosis or clubbing NEUROLOGY: Mood and affect appear appropriate. Cranial nerves II through XII grossly intact. Left upper extremity 4/5 muscle strength. Results - Labs CBC & Chem 7: 02/05/18 05:57 02/12/18 04:55 Laboratory Results - last 24 hr 02/12/18 02/12/18 02/12/18 11:12 16:51 20:09 POC Glucose 240 H 255 H 207 H 02/13/18 07:42 POC Glucose 199 H Microbiology 02/10/18 09:27 Tissue - Foot Gram Stain - Final 02/10/18 09:27 Tissue - Foot Wound Culture - Preliminary No growth in 48 hours 02/10/18 09:25 Wound - Foot Gram Stain - Final 02/10/18 09:25 Wound - Foot Wound Culture - Preliminary No growth in 48 hours Assessment and Plan - Assessment (1) Acute ischemic stroke Code(s): I63.9 - Cerebral infarction, unspecified Status: Acute - Plan This is a 52-year-old male patient with: Diabetic foot wound, chronic -Wound care nurse evaluated the patient recommending podiatry consult. -Podiatry evaluated the patient and recommended x-ray, MRI, antibiotics for diabetic foot wound. -MRI of the foot does show osteomyelitis involving two thirds of the distal fifth metatarsal. Extensive soft tissue enhancement in the interspace between the fourth and fifth metatarsals extending towards the base without any marrow signal alteration, fluid collection, abscess or osteomyelitis. -Cultures indicate MSSA wound infection. -Podiatry did take the patient to the OR on 02/11/18. Will plan for wound check today. -Consulted infectious disease for antibiotic recommendations, they discontinued vancomycin and Zosyn and started Cipro, Unasyn. Await final recs and wound cultures. Acute left-sided weakness, rule out CVA -CT scan of the head at [facility] did not indicate any acute abnormality. -MRI of the brain did not indicate any acute infarction or hemorrhage. Does show a 2.6 x 1.5 cm left middle cranial fossa arachnoid cyst. Mild periventricular ischemic white matter demyelinization were -MRA of the brain showed unremarkable MRA. -Carotid ultrasound shows mild plaquing in both carotid bifurcations, otherwise unremarkable examination. -MRI of the cervical spine does show some abnormalities of moderate size right base protrusion of C4-C5 which meets the anterior cord with anterior mild flattening. There is moderate disc bulge at C5-C6 which meets the anterior cord with questionable mild flattening. The CSF surrounding the cord is obliterated and the residual AP diameter canal measures 7-8 mm consistent with borderline central canal stenosis. -Echocardiogram was unremarkable. -Neurology evaluated the patient and made recommendations, neurologist has been updated on a daily basis for continued care and management. -Additional labs to include TSH, B12, folate were unremarkable -MRI of the cervical spine with neurologist who recommended that neurosurgery evaluate the films for recommendations. Neurosurgery Dr. Camara was consulted, who reviewed the records who recommended consulting a neurologist because there is nothing that can be done from a neurosurgical standpoint. The neurologist was updated and indicated repeating the MRI of the brain to see if anything was missed. If it is negative then would recommend consulting psychiatry for his psychogenic weakness. -Discussed with neurologist who indicated patient is cleared from neurological standpoint. Patient would benefit from psychiatric consult. Nothing more from neurological standpoint -Psychiatry evaluated the patient indicates that there is no underlying psychiatric illness. States that patient has no again for feigning weakness, no further recommendations Type 2 Diabetes, uncontrolled from home -Patient with prior worsening control secondary to not following diet with outside food, this has been controlled. -Diabetic diet -Accu-Cheks with sliding scale insulin, Continue on high dose sliding scale insulin -Increase Levemir 15 units twice daily. -Hemoglobin A1c 12.1 -Patient did undergo diabetic education Hypertension, hyperlipidemia, coronary disease, history of myocardial infarction -Resume home medications -LDL 93 -Continue statin DVT prevention -Sequential compression devices Discharge Planning: Await final ID recommendations as well as podiatry input.
[2018-02-13] MEDS ORDERED: Insulin Detemir Inj 1,000 UNIT/10 ML Vial SQ SCH (09:00)
--- NOTE | 2018-02-13 09:22 | P.PNPOD ---
Subjective Interval history: mild pain no events overnight Physical Exam Vital signs: Vital Signs 02/12/18 12:00 02/12/18 16:00 02/12/18 21:00 Temperature 97.8 F 98.7 F Pulse Rate 73 80 Respiratory Rate 21 21 4 L Blood Pressure 144/80 H 118/77 Pulse Oximetry 99 99 02/13/18 00:00 Temperature 95.5 F L Pulse Rate 75 Respiratory Rate 18 Blood Pressure 120/85 Pulse Oximetry 91 L Intake & Output 02/12/18 02/13/18 02/13/18 18:59 06:59 18:59 Intake Total 780 / 780 1200 / 1200 Output Total 1000 / 1000 2500 / 2500 Balance -220 / -220 -1300 / -1300 Weight 94.4 kg Intake: IV 300 / 300 200 / 200 Unasyn Inj 3 GM In NS Inj 100 300 / 300 200 / 200 ML @ 200 mls/hr IV.SIG Q6H [facility] Rx#:[id number] Oral 480 / 480 1000 / 1000 Output: Urine 1000 / 1000 2500 / 2500 - Constitutional no acute distress - Neurological Alert and oriented x3 - Routine Extremities Exam Comments: Right foot absent 5th digit, plantar incision, long V type incision with wound edges loosely coapted with sutures intact, mild blood drainage, no pus or ischemic changes. Foot is warm, sensation decreased to light touch and deep pressure. Medications and Allergies Active Medications: Active Medications Acetaminophen (Tylenol) 650 mg PO Q4H PRN PRN Reason: Temp > 100.4 Amlodipine Besylate (Norvasc) 10 mg PO DAILY [facility] Last Admin: 02/13/18 08:22 Dose: 10 mg Aspirin (Aspirin) 325 mg PO DAILY [facility] Last Admin: 02/13/18 08:25 Dose: 325 mg Atorvastatin Calcium (Lipitor) 20 mg PO DAILY [facility] Last Admin: 02/13/18 08:22 Dose: 20 mg Ciprofloxacin HCl (Cipro) 500 mg PO Q12HR [facility] Last Admin: 02/13/18 08:23 Dose: 500 mg Dextrose (D50w Vial) 50 ml IV.PUSH UNSCH PRN PRN Reason: PER HYPOGLYCEMIA PROTOCOL Duloxetine HCl (Cymbalta) 60 mg PO DAILY [facility] Last Admin: 02/13/18 08:22 Dose: 60 mg Gabapentin (Neurontin) 300 mg PO BID [facility] Last Admin: 02/13/18 08:23 Dose: 300 mg Glucagon (Glucagon Inj) 1 mg OTHER PRN PRN PRN Reason: for Hypoglycemia Protocol Heparin Sodium (Porcine) (Heparin Inj) 5,000 units SQ Q12HR [facility] Last Admin: 02/13/18 08:25 Dose: 5,000 units Ampicillin Sodium/Sulbactam (Sodium 3 gm/ Sodium Chloride) 100 mls @ 200 mls/ hr IV.SIG Q6H [facility] Last Infusion: 02/13/18 06:56 Dose: Infused Insulin Aspart (Novolog Insulin [employer]al Sugar Inj) 0 unit SQ ACHS [facility]; Protocol Last Admin: 02/13/18 08:26 Dose: 5 unit Insulin Detemir (Levemir Inj) 15 unit SQ BID [facility] Last Admin: 02/13/18 08:54 Dose: Not Given Lactulose (Lactulose Liq) 30 ml PO DAILY PRN PRN Reason: SEVERE CONSITIPATION Ondansetron HCl (Zofran Inj) 4 mg IV.PUSH Q6H PRN PRN Reason: NAUSEA OR VOMITING Oxycodone/Acetaminophen (Percocet 10/325 Mg) 1 tab PO Q4H PRN PRN Reason: PAIN SCALE 1 TO 10 Last Admin: 02/13/18 08:23 Dose: 1 tab Sodium Chloride (Ns Flush) 2 ml IV.FLUSH BID [facility] Last Admin: 02/13/18 08:26 Dose: 2 ml Triamterene/HCTZ (Dyazide 37.5/25 Mg) 1 cap PO DAILY [facility] Last Admin: 02/13/18 08:22 Dose: 1 cap Allergies Allergy/AdvReac Type Severity Reaction Status Date / Time morphine AdvReac Hallucinati Verified 02/10/18 07:44 ons Home Medications Medication Instructions Recorded Confirmed Type Novolin 70/30 U-100 Insulin 40 unit SUBCUT AC BREAKFAST 02/05/18 02/05/18 History amlodipine [Norvasc] 10 mg PO DAILY 02/05/18 02/05/18 History atorvastatin [Lipitor] 20 mg PO DAILY 02/05/18 02/05/18 History cetirizine [Zyrtec] 10 mg PO DAILY 02/05/18 02/05/18 History duloxetine [Cymbalta] 60 mg PO DAILY 02/05/18 02/05/18 History gabapentin 300 mg PO BID 02/05/18 02/05/18 History insulin NPH and regular human 20 unit SUBCUT HS 02/05/18 02/05/18 History [Novolin 70/30 U-100 Insulin] oxycodone-acetaminophen [Percocet] 1 tab PO Q6H PRN 02/05/18 02/05/18 History sitagliptin [Januvia] 100 mg PO DAILY 02/05/18 02/05/18 History triamterene-hydrochlorothiazid 1 cap PO DAILY 02/05/18 02/05/18 History [Dyazide] Results - Labs CBC & Chem 7: 02/05/18 05:57 02/12/18 04:55 Laboratory Results - last 24 hr 02/12/18 02/12/18 02/12/18 11:12 16:51 20:09 POC Glucose 240 H 255 H 207 H 02/13/18 07:42 POC Glucose 199 H Microbiology 02/10/18 09:27 Tissue - Foot Gram Stain - Final 02/10/18 09:27 Tissue - Foot Wound Culture - Preliminary No growth in 48 hours 02/10/18 09:25 Wound - Foot Gram Stain - Final 02/10/18 09:25 Wound - Foot Wound Culture - Preliminary No growth in 48 hours Assessment and Plan - Assessment (1) Foot osteomyelitis, right Code(s): M86.9 - Osteomyelitis, unspecified Status: Acute - Plan Bone path is clear for OM, ok to follow outpt. Will need wound cleanse daily with normal saline, betadine swab to incision, patient is to be heel WB only on the right foot, Follow out with Dr Roberts 7-10days. Ok to DC per podiatry reviewed case with medicine. Procedures: Date of procedure: 02/10/18 Pre-op diagnosis: Right foot osteomyelitis Post-op diagnosis: same Procedure: Right foot fifth metatarsal resection Right foot fourth metatarsal excision Right foot submet 4 ulcer excision Right foot third metatarsal bone biopsy [facility] Surgeon: Delfina Roberts Pathology: other (1. fifth metatarsal/fourth metatarsal head for pathology 2/3. Bone biopsy third metatarsal for path and micro 4. Soft tissue right foot. 5. proximal clearing margin 5th metatarsal for path)
--- NOTE | 2018-02-13 11:15 | P.DCO ---
- Diagnosis (1) Diabetic peripheral neuropathy Status: Acute (2) Foot osteomyelitis, right Status: Acute - Physical Therapy Order: Evaluate and treat, Improve ambulation, Strength and gait training - Home Health Nursing Order: Medical education, Signs/symptoms of disease process, Medication education-adverse effect, Wound care and dressing changes, Nursing assessment with vital signs Instructions: Wound care orders: Will need wound cleanse daily with normal saline, betadine swab to incision, patient is to be heel WB only on the right foot - Case Management Consult Yes - Certification I have seen patient Hansel Lopez on 02/13/18. My clinical findings support the need for the requested home health care services because: Deconditioned with increased weakness I certify that my clinical findings support that this patient is homebound because: Unsteady gait/balance
--- NOTE | 2018-02-13 11:25 | P.DS ---
Date of admission: 02/08/18 11:09 Primary care physician: UNKNOWN Anticipated date of discharge: 02/13/18 Brief History from admission: 52-year-old male with known history of hypertension, hyperlipidemia, myocardial infarction, diabetes, peripheral neuropathy, chronic neck and back pain who presented to the hospital for evaluation of left-sided weakness. Patient states that his normal state of health until he was out playing pool last evening. He states that every time he went to go to the restroom and he was urinating he got lightheaded and dizzy. He subsequently went home early from the pool tournament. He called his uncle and told him that he was not feeling well, his uncle was going to come over and check on him. When his uncle got to his house he was sleeping and when he woke up at approximately 8:00 he had left- sided numbness in both upper and lower extremities. He indicated that there was some blurred vision, difficulty in speaking. The patient was taken to the ER by his uncle in approximately 30 minutes. Patient had workup done at [facility] and was found to have a negative CT scan. Apparently there was no neurologist auto adjudication specialist per ER documentation. The patient was transferred to [facility] for continued care and management. Upon evaluating patient today he does have significant stroke symptoms with left- sided weakness, paralysis. Patient indicates that he has had a TIA in the past. Patient update on day of discharge: See note. DS: Diagnosis - Discharge Diagnosis (1) Diabetic peripheral neuropathy Status: Acute (2) Foot osteomyelitis, right Status: Acute (3) Acute ischemic stroke Status: Acute DS: Medications - Discharge Medications Prescriptions: cefuroxime axetil 500 mg PO Q12H 21 Days #42 tab ciprofloxacin HCl [Cipro] 500 mg PO BID 21 Days #42 tab insulin aspart U-100 [Novolog U-100 Insulin aspart] 0 unit SUBCUT ACHS 30 Days ml insulin detemir U-100 [Levemir U-100 Insulin] 15 unit SUBCUT BID 30 Days #9 ml DS: Summary Hospital Course: This is a 52-year-old male patient with: Diabetic foot wound, chronic -Wound care nurse evaluated the patient recommending podiatry consult. -Podiatry evaluated the patient and recommended x-ray, MRI, antibiotics for diabetic foot wound. -MRI of the foot does show osteomyelitis involving two thirds of the distal fifth metatarsal. Extensive soft tissue enhancement in the interspace between the fourth and fifth metatarsals extending towards the base without any marrow signal alteration, fluid collection, abscess or osteomyelitis. -Cultures indicate MSSA wound infection. -Podiatry did take the patient to the OR on 02/11/18 -Consulted infectious disease for antibiotic recommendations, they discontinued vancomycin and Zosyn and started Cipro, Unasyn. Final recs per ID is cipro and cefuroxime. Acute left-sided weakness, rule out CVA -CT scan of the head at [facility] did not indicate any acute abnormality. -MRI of the brain did not indicate any acute infarction or hemorrhage. Does show a 2.6 x 1.5 cm left middle cranial fossa arachnoid cyst. Mild periventricular ischemic white matter demyelinization were -MRA of the brain showed unremarkable MRA. -Carotid ultrasound shows mild plaquing in both carotid bifurcations, otherwise unremarkable examination. -MRI of the cervical spine does show some abnormalities of moderate size right base protrusion of C4-C5 which meets the anterior cord with anterior mild flattening. There is moderate disc bulge at C5-C6 which meets the anterior cord with questionable mild flattening. The CSF surrounding the cord is obliterated and the residual AP diameter canal measures 7-8 mm consistent with borderline central canal stenosis. -Echocardiogram was unremarkable. -Neurology evaluated the patient and made recommendations, neurologist has been updated on a daily basis for continued care and management. -Additional labs to include TSH, B12, folate were unremarkable -MRI of the cervical spine with neurologist who recommended that neurosurgery evaluate the films for recommendations. Neurosurgery Dr. Camara was consulted, who reviewed the records who recommended consulting a neurologist because there is nothing that can be done from a neurosurgical standpoint. The neurologist was updated and indicated repeating the MRI of the brain to see if anything was missed. If it is negative then would recommend consulting psychiatry for his psychogenic weakness. -Discussed with neurologist who indicated patient is cleared from neurological standpoint. Patient would benefit from psychiatric consult. Nothing more from neurological standpoint -Psychiatry evaluated the patient indicates that there is no underlying psychiatric illness. States that patient has no again for feigning weakness, no further recommendations Type 2 Diabetes, uncontrolled from home -Patient with prior worsening control secondary to not following diet with outside food, this has been controlled. -Diabetic diet -Insulin orders per dc orders. -Increase Levemir 15 units twice daily. -Hemoglobin A1c 12.1 -Patient did undergo diabetic education Hypertension, hyperlipidemia, coronary disease, history of myocardial infarction -Resume home medications -LDL 93 -Continue statin Patient was stabilized on day of dc and will follow up with pcp and ID. ABX x 3 weeks per ID. - Time Spent with Patient Total time spent providing and/or coordinating discharge services: Greater than 30 minutes - Quality: VTE Deep Vein Thrombosis/Pulmonary Embolism Present on Admission: No Exam Vital signs: Vital Signs 02/12/18 12:00 02/12/18 16:00 02/12/18 21:00 Temperature 97.8 F 98.7 F Pulse Rate 73 80 Respiratory Rate 21 21 4 L Blood Pressure 144/80 H 118/77 Pulse Oximetry 99 99 02/13/18 00:00 02/13/18 08:00 Temperature 95.5 F L 96.5 F L Pulse Rate 75 68 Respiratory Rate 18 20 Blood Pressure 120/85 119/83 Pulse Oximetry 91 L 95 Intake & Output 02/12/18 02/13/18 02/13/18 18:59 06:59 18:59 Intake Total 780 / 780 1200 / 1200 Output Total 1000 / 1000 2500 / 2500 Balance -220 / -220 -1300 / -1300 Weight 94.4 kg Intake: IV 300 / 300 200 / 200 Unasyn Inj 3 GM In NS Inj 100 300 / 300 200 / 200 ML @ 200 mls/hr IV.SIG Q6H [facility] Rx#:[id number] Oral 480 / 480 1000 / 1000 Output: Urine 1000 / 1000 2500 / 2500 Narrative: GENERAL: Well-developed, well-nourished, in no acute distress. alert and orientated HEENT: Head is normocephalic without any lesions or masses noted. Facial features are symmetric. Eyes: Extraocular muscles are intact. Conjunctivae were clear. NECK: Supple without any masses. Trachea midline no deviation. No JVD, CARDIAC: Regular rhythm, regular rate. S1/S2 are heard. No murmurs gallops or rubs. LUNGS: Clear to auscultation bilaterally. No wheeze, rhonchi or rales. No use of accessory muscles on inspiration or expiration. ABDOMEN: Soft, nontender. Nondistended. Bowel sounds heard in all 4 quadrants. No organomegaly or masses. Negative rebound, negative guarding EXTREMITIES: No edema, pulses are equal bilaterally. No cyanosis or clubbing NEUROLOGY: Mood and affect appear appropriate. Cranial nerves II through XII grossly intact. Left upper extremity 4/5 muscle strength. Right lower ex: Dressing d/i. Right foot absent 5th digit, plantar incision, long V type incision with wound edges loosely coapted with sutures intact, mild blood drainage, no pus or ischemic changes. Foot is warm, sensation decreased to light touch and deep pressure. Results Procedures completed during hospitalization: See below. Labs on day of discharge: Labs from last 24 hours 02/13/18 02/13/18 02/12/18 11:22 07:42 20:09 POC Glucose 132 H 199 H 207 H 02/12/18 16:51 POC Glucose 255 H - Impressions ITS Impressions Carotid Doppler Study 02/05/18 00:00 CONCLUSION: Mild plaquing at both carotid bifurcations. Otherwise, unremarkable examination for patient's age. Specifically, no focal high-grade or hemodynamically significant stenosis. Head MRA 02/05/18 04:13 CONCLUSION: 1. Unremarkable MRA examination of the [place]. Specifically, no evidence for large vessel occlusion. Cervical Spine MRI 02/06/18 00:00 CONCLUSION: 1. Moderate size broad-based protrusion at the C4-5 level which meets the anterior cord with apparent mild flattening in no abnormal signal. 2. Moderate disc bulge at C5-6 which meets the anterior cord with questionable mild flattening. The CSF space surrounding the cord is obliterated and the residual AP diameter canal measures 7 to 8 mm consistent with borderline central canal stenosis. 3. Narrowing of the neural foramina bilaterally at the C4-5 and C5-6 levels. 4. Optimal exam motion artifact. Extremity Arterial Study 02/07/18 00:00 CONCLUSION: 1. Normal examination. HARMEET right and left extremities. Head MRI 02/07/18 11:34 CONCLUSION: 1. Chronic ischemic small vessel vasculopathy and similar changes in the brainstem. 2. Arachnoid cyst middle cranial fossa on the left is unchanged. 3. No acute infarction. Foot MRI 02/08/18 07:03 CONCLUSION: 1. Findings consistent with osteomyelitis involving two thirds of the distal fifth metatarsal. The base is spared. 2. Osteomyelitis involving the distal third of the fourth metatarsal. 3. Intense soft tissue enhancement and in the interspace between the fourth and fifth metatarsals extending towards the base without marrow signal alteration or fluid collections as abscess or osteomyelitis. Foot X-Ray 02/10/18 00:00 CONCLUSION: Patient is status post resection of the distal one third of the fourth metatarsal and distal one half of the fifth metatarsal with expected postsurgical changes. Discharge Plan - Discharge Disposition Patient Disposition: W/Home Health Service - Discharge Condition Condition: Stable - Discharge Order Discharge Orders: Discharge Order (Routine); Ordered 02/13/18 Ordered By: Delfina Colmenares - Discharge Details Anticipated Discharge Date: 02/13/18 - Physicians Team Primary Care Provider: UNKNOWN, Attending Provider: Rodriguez Tai Other Providers: Lindsey Engle MD ; Alfredo Cardenas MD ; Cecily Bentley DPM ; Momo Mendiola DO ; Cherelle Styles MD - Rxs /Orders / Referrals /Forms Prescriptions: New cefuroxime axetil 500 mg Tablet 500 mg PO Q12H 21 Days Qty: 42 RF: 0 ciprofloxacin HCl [Cipro] 500 mg Tablet 500 mg PO BID 21 Days Qty: 42 RF: 0 insulin aspart U-100 [Novolog U-100 Insulin aspart] 100 unit/mL Solution 0 unit subcut ACHS 30 Days RF: 0 insulin detemir U-100 [Levemir U-100 Insulin] 100 unit/mL Solution 15 unit subcut BID 30 Days Qty: 9 RF: 0 Continue amlodipine [Norvasc] 10 mg Tablet 10 mg PO DAILY atorvastatin [Lipitor] 20 mg Tablet 20 mg PO DAILY cetirizine [Zyrtec] 10 mg Tablet 10 mg PO DAILY duloxetine [Cymbalta] 60 mg Capsule,Delayed Release(Dr/Ec) 60 mg PO DAILY gabapentin 300 mg Capsule 300 mg PO BID oxycodone-acetaminophen [Percocet] 10-325 mg Tablet 1 tab PO Q6H PRN (Reason: Pain) sitagliptin [Januvia] 100 mg Tablet 100 mg PO DAILY triamterene-hydrochlorothiazid [Dyazide] 37.5-25 mg Capsule 1 cap PO DAILY Discontinued insulin NPH and regular human [Novolin 70/30 U-100 Insulin] 100 unit/mL (70- 30) Suspension 20 unit SUBCUT HS Novolin 70/30 U-100 Insulin suspension 40 unit subcut AC BREAKFAST Referrals: Cherelle Styles MD [Physician] - 02/26/18 UNKNOWN, [Primary Care Provider] - 02/19/18 - Discharge Instructions Patient Printed Instructions: Cefuroxime (By mouth), Ciprofloxacin (By mouth), Insulin Detemir (By injection), Foot Care for People with Diabetes (GEN), Diabetic Foot Ulcers (GEN), Weakness (DC), Stroke (GEN)
== END 2018-02-13 12:52 | disposition home or self-care (01) ==
LOC: INTOOBSV 04:05 → PH3 04:05
PROVIDERS: ADMIT Internal Medicine; ATTEND Internal Medicine